=== PATIENT | female | born 1990 | race Caucasian/White ===

== ENCOUNTER → 2019-06-23 11:31 | Outpatient (BNVA) | payer MEDICAID, SELFPAY | PROVIDERS: Family Provider Family Medicine; PCP Family Medicine; Visit Provider Emergency Medicine | DX: R10.9 Unspecified abdominal pain (principal) | CPT/HCPCS: 81003 ==

== ENCOUNTER → 2019-06-26 09:55 | Outpatient (BNVA) | payer MEDICAID, SELFPAY | PROVIDERS: Family Provider Family Medicine; PCP Family Medicine; Visit Provider Family Medicine | DX: R10.9 Unspecified abdominal pain (principal); E03.9 Hypothyroidism, unspecified; R00.2 Palpitations; K21.9 Gastro-esophageal reflux disease without esophagitis; K59.09 Other constipation; J45.20 Mild intermittent asthma, uncomplicated; K21.0 Gastro-esophageal reflux disease with esophagitis; Z13.6 Encounter for screening for cardiovascular disorders; Z13.220 Encounter for screening for lipoid disorders | CPT/HCPCS: 80053; 80061; 83690; 84443; 85025 ==

== ENCOUNTER → 2019-07-13 08:28 | Outpatient (BNVA) | payer MEDICAID, SELFPAY | PROVIDERS: Family Provider Family Medicine; PCP Family Medicine; Visit Provider Family Medicine | DX: R30.0 Dysuria (principal); Z20.2 Contact with and (suspected) exposure to infections with a predominantly sexual mode of transmission | CPT/HCPCS: 81003; 87491; 87591; 87661 ==

== ENCOUNTER 2019-09-15 10:10 | Outpatient (CLI) | payer MEDICAID, SELFPAY ==
--- NOTE | 2019-09-15 10:35 | FL_ITS ---
WS: [id number] Upper GI examination with fluoroscopy. HISTORY: Abdominal pain. Prior gastric sleeve. Fluoroscopy time: 1.8 minutes. Patient swallowed the barium mixtures without difficulty. Mildly dilated stomach pouch fills with bar ium and then empties normally through the gastric sleeve. There is no extravasation. Very similar in appearance to the CT examination from 06/29/2018. There is very slight delay in emptying from the dist al esophagus into the pouch. Tiny amount of reflux into the distal esophagus was evident as several t imes. There is good emptying through the gastric sleeve. FL/FL upper GI w air* [id number] IMPRESSION: Slight delay in emptying of the distal esophagus and a few episodes of minimal reflux distally. Otherwise the gastric sleeve is very similar in appearance as compared to 2018.
== END 2019-09-15 10:11 | disposition home or self-care (01) ==
LOC: RAD 10:14
PROVIDERS: PCP Family Medicine; Visit Provider Surgery
DX: R10.9 Unspecified abdominal pain (principal)
CPT/HCPCS: 74246

== ENCOUNTER 2019-09-19 06:25 | Day surgery (SDC) | payer MEDICAID, SELFPAY ==
[2019-09-18 15:50] VITALS: BMI 42.9
[2019-09-19] VITALS (7 sets, daily range): BP systolic 111–129; BP diastolic 66–83; PULSE 71–84; RESP 18–24; TEMP 36.1–36.2; O2SAT 93–100
--- NOTE | 2019-09-19 06:55 | P.ANESASSM_ITS ---
Pre-Anesthetic Assessment Pre-Anesthetic Assessment: Height/Weight: Height 1.63 m Weight 113.398 kg Temp Pulse Resp BP Pulse Ox 97.0 F L 71 18 115/77 99 09/19/19 06:39 09/19/19 06:39 09/19/19 06:39 09/19/19 06:39 09/19/19 06:39 Preop Diagnosis: Right upper Extremity masses and GERD Proposed Procedure: Operation Date: 09/19/19 08:00 Proposed Procedures p EGD 97611 [id number] k21.9 k21.0(Not Applicable) - Saran Green MD s Excision of skin lesion for right uppper extrimty masses(Right) - Saran Green MD Familial anesthetic complications: Woke up during her last removal of lipomas under propofol - will do ett Was Beta Carolyn taken within 24 hours: N/A L ast intake: Intake Last Liquid Date 09/18/19 Last Liquid Time 20:00 Last Solid Date 09/18/19 Last Solid Time 20:00 Social: Social History: Tobacco and No alcohol Exam: Pre-Anes Outpt Exam: alert, oriented x 3, clear to auscultation bilaterally and regular rate & rhythm Airway: Cervical ROM: WNL MP: 2 Additional comments: EDENTULOUS Pulmonary: Pulmonary: Asthma CV/HEM: CV/HEM: Palp : : None reported Hepatic: Hepatic: None reported GI: GI: GERD Comments: hx gastric sleeve Metabolic: Metabolic: Morbid obesity Neuropsych: Neuropsych: None reported Anesthetic Plan: ASA status: 2 Anesthesia: General Risk of > 500 ml blood loss (7ml/kg in children): No PFSH Anesthesia PFSH: Medical History Abdominal pain determined by examination Asthma, mild intermittent, well-controlled Chronic constipation Constipation GERD (gastroesophageal reflux disease) Lipomatosis Lumbar pain Obesity Panic disorder Surgical History History of dilation and curettage History of hysterectomy History of laparoscopic cholecystectomy History of oral surgery (~2014) History of Shanae-en-Y gastric bypass (~10/2015) History of sleeve gastrectomy History of tonsillectomy and adenoidectomy Family History Mother Hypertension Diabetes Thyroid disease Father Hypertension Father Heart disease Family/Other Heart disease Denies family history of Anesthesia complication Bleeding disorder Social History Smoking and tobacco status: current every day smoker cigarettes Quit status (tobacco): not considering quitting Second hand smoke exposure: Yes Alcohol intake: never Desire information about alcohol rehabilitation?: No Desire information about substance/drug rehabilitation?: No Adopted: No Caregiver/support person: Yes Lives independently: No Household members: family Housing: House Marital status: Highest education level completed: High School Graduate service: No Current occupational status: unemployed Current occupational exposures/hazards: No Pets and animals: Yes History of recent travel: No Sexually active: Yes Current gender identity: Female Katie/Denominational: None Special katie needs: No Agree to transfusion: No Financial difficulty paying for basics: Decline to Answer Data Anesthesia Cardiac Studies: No Data to Display
[2019-09-19] MEDS: sodium chloride 0.9% 1,000 ML 30 ML IV (06:56)
--- NOTE | 2019-09-19 08:05 | W.PM.OPSUD ---
Surgery/Procedure H&P Update DATE OF PROCEDURE: September 19, 2019 DATE H&P PERFORMED: 09/11/19 H&P UPDATE INFORMATION: I have reviewed H&P completed within last 30 days, I have examined patient prior to procedure and No changes to prior documentation PREOP DIAGNOSIS: Right upper Extremity masses and GERD PRIMARY INDICATION FOR PROCEDURE: The same PLANNED PROCEDURE: Operation Date: 09/19/19 08:00 Proposed Procedures p EGD [id number] k21.9 k21.0(Not Applicable) - Saran Green MD s Excision of skin lesion for right uppper extrimty masses(Right) - Saran Green MD
[2019-09-19] MEDS: clindamycin 900 MG/50 ML PREMIX 100 MG IV (08:28)
[2019-09-19] MEDS: lidocaine 2% INJ 20 mL INJECTION (09:00)
--- NOTE | 2019-09-19 09:35 | PM.OP ---
Operative Report Date of procedure: September 19, 2019 Pre-op Diagnosis: Right upper Extremity masses and GERD status post gastric sleeve Post-op diagnosis: other (Multiple life pneumatosis of the right upper extremity,EGD shows prepyloric gastritis and spiraling of the GE junction GERD appreciated at the GE junction which is located 40 cm from the incisors No evidence of strictures) Procedure Done: Excision of multiple right upper extremity masses and EGD(esophagogastroduodenoscopy with biopsy) Specimens removed/disposition: Right upper extremity masses: 1-right arm mass 2-right forearm proximal mass 3-right forearm dorsal mass 4-right forearm posterior mass Surgeon: Saran Green Graphic Engineer: Jaxson instructor adjunct surgical technician Lyndsey ceramics technician Aline circulating nurse Anesthesia: General (cRNAs Macho and Jadon) Estimated blood loss (mL): 5 Condition: stable Disposition: same day Brief History: This is a pleasant 29 years old female patient well-known to me from previous clinical encounters, continues to have development of newly encountered lipomatosis of the extremities, she was seen recently in my office because of tender spots on her right upper extremity,in addition she is a status post laparoscopic gastric sleeve that was done elsewhere few years ago and developed worsening GERD where I elected to perform a diagnostic upper GI study prior to offer her an EGD. After thorough history physical examination and reviewing the chart and images with my personal interpretation I did breastfeeding peer counselor the patient for excision of right upper extremity masses and diagnostic EGD with possible biopsy. Informed consent per chart Procedure: After identifying the patient holding area, the right upper extremity masses were marked before the procedure by myself, patient was then transferred to the operative suite, was placed in supine position, IV antibiotics were given per protocol, IV propofol was given by the anesthesia provider followed by intubation, the patient was placed in supine position and all pressure points were padded by me and the staff, prep and drape of the right upper extremity circumferentially was done under the usual sterile technique. Time-out was done verifying the patient's name/date of /planned procedure and destination after the procedure, all were in agreement. I started by oblique skin incision all the way to the subcutaneous layer using 15 blade knife of the mass located at the lateral aspect of the right arm, dissecting all the way to the subcutaneous layer measured 1 x 1.5 cm. Using the same technique the other mass located proximally at the right forearm, skin incision was created and dissection was carried all the way to the subcutaneous layer is about 1 x 1 cm. Same technique was used for another mass located at the dorsal aspect of the right forearm which comprised the third specimen and the fourth was located on the posterior aspect of the right forearm that was excised with using the same thing. I was able to dissect using sharp and blunt dissection and excising a well encapsulated lipoma-like structure of all 4 places. All specimens were sent for permanent pathology separately All cavities were irrigated and hemostasis was achieved, followed by closure with 3-0 Vicryl then 4-0 Monocryl and then surgical glue. At this point attention was deviated towards the diagnostic EGD with the patient was placed in the left lateral position, I introduced the EGD via the mouth after a bite block was placed and I was able to reach all the way to the second part of the duodenum, GE junction was noticed to be at 40 cm with grade I GERD, noticed spiraling at the GE junction towards the proximal part of the gastric conduit but there was no obvious stricture, prepyloric gastritis were noticed and there was no evidence of hiatal hernias per endoscopic view and no strictures of the gastric conduit, remanent of the gastric fundus was appreciated. The first and second parts of the duodenum appeared to be normal CLOtest biopsy was obtained from the antrum to rule out H. pylori infection The scope was then retrieved after deflation of the conduit and patient tolerated this part of the procedure well Patient tolerated both procedures well, count of instruments,needles and sponges were completed at the end of the procedure.And then patient was transferred to the recovery area in stable condition after extubation. I was present for the whole entire procedure
--- NOTE | 2019-09-19 09:49 | SUR.PHASEI ---
PT TO PACU AWAKE REQUESTS TO SIT UP HOB AT 45 DEGREES, PT SLEEPY WITH GOOD RESP BUT AWAKES EASILY TO VOICE ANSWERS APPROPRIATELY TO VERBAL QUESTIONS, VSS.
[2019-09-21 14:05] LABS: H. Pylori / CLO Test Negative
== END 2019-09-19 10:46 | disposition home or self-care (01) ==
PROVIDERS: PCP Family Medicine; Visit Provider Surgery
PROC: 0DJ08ZZ Inspection of Upper Intestinal Tract, Via Natural or Artificial Opening Endoscopic (ICD-10-PCS; CPT 43235; principal; 2019-09-19 07:55)
PROC: (CPT 11404; 2019-09-19 07:55)
DX: L72.8 Other follicular cysts of the skin and subcutaneous tissue (principal); R22.31 Localized swelling, mass and lump, right upper limb; K21.9 Gastro-esophageal reflux disease without esophagitis; Z98.84 Bariatric surgery status; J45.909 Unspecified asthma, uncomplicated; E66.01 Morbid (severe) obesity due to excess calories; Z68.41 Body mass index [BMI] 40.0-44.9, adult; F17.210 Nicotine dependence, cigarettes, uncomplicated
CPT/HCPCS: 11404; 12032; 12345; 43239; 87077; 88304; J0330; J1100; J2001; J2250; J2405; J2704; J3010; J3490; J7030

== ENCOUNTER 2019-11-28 05:58 | Day surgery (SDC) | payer MEDICAID, SELFPAY ==
[2019-11-28] VITALS (7 sets, daily range): BP systolic 111–143; BP diastolic 74–93; PULSE 66–77; RESP 16–22; TEMP 36.2–36.7; O2SAT 94–100; BMI 48.0
--- NOTE | 2019-11-28 06:21 | W.PM.OPSUD ---
Surgery/Procedure H&P Update DATE OF PROCEDURE: November 28, 2019 DATE H&P PERFORMED: 11/15/19 H&P UPDATE INFORMATION: I have reviewed H&P completed within last 30 days, I have examined patient prior to procedure and No changes to prior documentation PREOP DIAGNOSIS: Lipomatosis of left upper extremity and mid back PRIMARY INDICATION FOR PROCEDURE: The same PLANNED PROCEDURE: Operation Date: 11/28/19 07:10 Proposed Procedures p Excision Mass/Lesion/Cyst Upper Extremit/Left arm and back masses 72763 K88.2(Left) - Saran Green MD
[2019-11-28] MEDS: sodium chloride 0.9% 1,000 ML 30 ML IV (06:30)
--- NOTE | 2019-11-28 06:43 | ANES.PREANE2 ---
Pre-Anesthetic Assessment Pre-Anesthetic Assessment: Height/Weight: Height 1.63 m Weight 127.006 kg Temp Pulse Resp BP Pulse Ox 97.2 F L 77 18 112/82 99 11/28/19 06:04 11/28/19 06:04 11/28/19 06:04 11/28/19 06:04 11/28/19 06:04 Preop Diagnosis: Lipomatosis of left upper extremity and mid back Proposed Procedure: Operation Date: 11/28/19 07:10 Proposed Procedures p Excision Mass/Lesion/Cyst Upper Extremit/Left arm and back masses 87481 K88.2(Left) - Saran Green MD Familial anesthetic complications: wakes up during propofol Was Beta Carolyn taken within 24 hours: Yes Last intake: Intake Last Liquid Date 11/27/19 Last Liquid Time 20:00 Last Solid Date 11/27/19 Last Solid Time 18:00 Social: Social History: Tobacco and No alcohol Exam: Pre-Anes Outpt Exam: alert, oriented x 3, clear to auscultation bilaterally and regular rate & rhythm Airway: Cervical ROM: WNL MP: 4 Dentition: Other (edentulous) Pulmonary: Pulmonary: Asthma (childhood) CV/HEM: Comments: palpitations GI: GI: GERD Metabolic: Metabolic: Morbid obesity Comments: gastric sleeve Anesthetic Plan: ASA status: 2 Anesthesia: General Risk of > 500 ml blood loss (7ml/kg in children): No Meds/Allergies Current Medications: Current Medications Generic Name Dose Route Start Last Admin Trade Name Freq PRN Reason Stop Dose Admin Sodium Chloride 1,000 mls @ 30 ml s/hr 11/28/19 06:00 11/28/19 06:30 Sodium Chloride 0.9% IV 11/29/19 05:59 30 mls/hr .Q24H LAURA Administration PFSH Anesthesia PFSH: Medical History Abdominal pain determined by examination Asthma, mild intermittent, well-controlled Chronic constipation Constipation GERD (gastroesophageal reflux disease) Lipomatosis Lumbar pain Obesity Panic disorder Surgical History History of dilation and curettage History of hysterectomy History of laparoscopic cholecystectomy History of oral surgery (~2014) History of Shanae-en-Y gastric bypass (~10/2015) History of sleeve gastrectomy History of tonsillectomy and adenoidectomy Family History Mother Hypertension Diabetes Thyroid disease Father Hypertension Father Heart disease Family/Other Heart disease Denies family history of Anesthesia complication Bleeding disorder Social History Smoking and tobacco status: current every day smoker cigarettes Quit status (tobacco): not considering quitting Second hand smoke exposure: Yes Alcohol intake: never Desire information about alcohol rehabilitation?: No Desire information about substance/drug rehabilitation?: No Adopted: No Caregiver/support person: Yes Lives independently: No Household members: family Housing: House Marital status: Highest education level completed: High School Graduate service: No Current occupational status: unemployed Current occupational exposures/hazards: No Pets and animals: Yes History of recent travel: No Sexually active: Yes Current gender identity: Female Katie/Anabaptism: None Special katie needs: No Agree to transfusion: No Financial difficulty paying for basics: Decline to Answer Data Anesthesia Cardiac Studies: No Data to Display
[2019-11-28] MEDS: clindamycin 900 MG/50 ML PREMIX 100 MG IV (07:00)
[2019-11-28] MEDS: lidocaine 2% INJ 20 mL INJECTION (07:35)
--- NOTE | 2019-11-28 07:55 | PM.OP ---
Operative Report Date of procedure: November 28, 2019 Pre-op Diagnosis: Lipomatosis of left upper extremity and mid back Post-op diagnosis: same Procedure Done: Excision of left arm and back masses Specimens removed/disposition: Left arm masses Back mass Surgeon: Saran Green Operations Support Representative: Surgical kimberlyn Aguila Anesthesia: General (fast food sales assistant Smart) Estimated blood loss (mL): 10 Condition: stable Disposition: same day Brief History: This is a pleasant 29 years old female patient morbidly obese well-known to me, with history of multiple lipomatosis, patient was seen in my office lately for new onset masses of the left arm and back patient was counseled for excision of these masses under general anesthesia. Informed consent per chart Procedure: After identifying the patient holding area, the left upper extremity and back masses were marked before the procedure by myself, patient was then transferred to the operative suite, was placed in supine position, IV antibiotics were given per protocol, IV propofol was given by the anesthesia provider followed by intubation, the patient was placed in right lateral position and all pressure points were padded by me and the staff and patient was secured appropriately to the bed, prep and drape of the left upper extremity and back regions were done under the usual sterile technique. Time-out was done verifying the patient's name/date of /planned procedure and destination after the procedure, all were in agreement. I started by skin incision all the way to the subcutaneous layer using 15 blade knife of the mass located at the back region , dissecting all the way to the subcutaneous layer measured 1.5 x 1.5 cm. Using the same technique the other mass located proximally at left arm, multiple skin incisions were created on siding with the left arm 3 masses and dissection was carried all the way to the subcutaneous layer and average of 1.5 x 1.5 cm. I was able to dissect using sharp and blunt dissection and excising a well encapsulated lipoma-like structure of all 4 places. All specimens were sent for permanent pathology separately All cavities were irrigated and hemostasis was achieved, followed by closure with 3-0 Vicryl then 4-0 Monocryl and then asked to swollen Steri-Strips followed by pressure dressing. Count was completed at the end of the procedure Patient tolerated the procedure well,And then patient was transferred to the recovery area in stable condition after extubation. I was present for the whole entire procedure
--- NOTE | 2019-11-28 08:17 | SUR.PHASEI ---
0813 PATIENT TO PACU FROM OR. RR EVEN AND UNLABORED. SPO2 100% ON SIMPLE MASK AT 8L. DRESSING TO LEFT UPPER ARM, CDI.
--- NOTE | 2019-11-28 08:38 | SUR.PHASEI ---
0832 PATIENT TO OPS AT THIS TIME. NO DISTRESS. DRESSINGS TO LEFT ARM AND LEFT LOWER BACK, CDI.
[2019-11-28] MEDS: TRAMadol 50 mg Tablet PO (08:54)
== END 2019-11-28 09:12 | disposition home or self-care (01) ==
PROVIDERS: PCP Family Medicine; Visit Provider Surgery
PROC: (CPT 11402; principal; 2019-11-28 07:00)
DX: D17.1 Benign lipomatous neoplasm of skin and subcutaneous tissue of trunk (principal); D17.22 Benign lipomatous neoplasm of skin and subcutaneous tissue of left arm; J45.909 Unspecified asthma, uncomplicated; K21.9 Gastro-esophageal reflux disease without esophagitis; E66.01 Morbid (severe) obesity due to excess calories; Z68.42 Body mass index [BMI] 45.0-49.9, adult; Z98.84 Bariatric surgery status; F17.210 Nicotine dependence, cigarettes, uncomplicated; Z83.3 Family history of diabetes mellitus; Z82.49 Family history of ischemic heart disease and other diseases of the circulatory system; Z79.01 Long term (current) use of anticoagulants
CPT/HCPCS: 11402 ×2; 12031; 12345; 88309; J0330; J2405; J2704; J3010; J3490; J7030

== ENCOUNTER → 2019-12-13 12:52 | Outpatient (BNVA) | payer MEDICAID, SELFPAY | PROVIDERS: PCP Family Medicine; Visit Provider Psychiatry & Neurology Psychiatry | DX: F41.0 Panic disorder [episodic paroxysmal anxiety] (principal); F33.1 Major depressive disorder, recurrent, moderate | CPT/HCPCS: 90792 ==

== ENCOUNTER → 2020-01-04 16:12 | Outpatient (BNVA) | payer MEDICAID, SELFPAY | PROVIDERS: PCP Family Medicine; Visit Provider Counselor Professional | DX: F41.0 Panic disorder [episodic paroxysmal anxiety] (principal); F41.1 Generalized anxiety disorder; F33.1 Major depressive disorder, recurrent, moderate | CPT/HCPCS: 90832 ==

== ENCOUNTER → 2020-01-10 10:58 | Outpatient (BNVA) | payer MEDICAID, SELFPAY | PROVIDERS: PCP Family Medicine; Visit Provider Psychiatry & Neurology Psychiatry | DX: F41.0 Panic disorder [episodic paroxysmal anxiety] (principal); F33.1 Major depressive disorder, recurrent, moderate | CPT/HCPCS: 99213 ==

== ENCOUNTER → 2020-01-22 13:08 | Outpatient (BNVA) | payer MEDICAID, SELFPAY | PROVIDERS: PCP Family Medicine; Visit Provider Psychiatry & Neurology Psychiatry | DX: F43.10 Post-traumatic stress disorder, unspecified (principal); F41.0 Panic disorder [episodic paroxysmal anxiety]; F81.9 Developmental disorder of scholastic skills, unspecified; F32.9 Major depressive disorder, single episode, unspecified | CPT/HCPCS: 99214 ==

== ENCOUNTER → 2020-02-22 15:02 | Outpatient (BNVA) | payer MEDICAID, SELFPAY | PROVIDERS: PCP Family Medicine; Visit Provider Counselor Professional | DX: F41.0 Panic disorder [episodic paroxysmal anxiety] (principal); F33.1 Major depressive disorder, recurrent, moderate; F41.1 Generalized anxiety disorder | CPT/HCPCS: 90832 ==

== ENCOUNTER → 2020-02-23 09:56 | Outpatient (BNVA) | payer MEDICAID, SELFPAY | PROVIDERS: PCP Family Medicine; Referring Provider Nurse Practitioner Family; Visit Provider Nurse Practitioner Family | DX: Z11.59 Encounter for screening for other viral diseases (principal); B34.9 Viral infection, unspecified | CPT/HCPCS: 87635 ==

== ENCOUNTER → 2020-03-21 09:07 | Outpatient (BNVA) | payer MEDICAID, SELFPAY | PROVIDERS: PCP Family Medicine; Referring Provider Surgery; Visit Provider Surgery | DX: Z20.828 Contact with and (suspected) exposure to other viral communicable diseases (principal) | CPT/HCPCS: 87635 ==

== ENCOUNTER 2020-03-26 09:53 | Day surgery (SDC) | payer MEDICAID, SELFPAY ==
[2020-03-25 13:21] VITALS: BMI 49.6
[2020-03-26 10:21] VITALS: BP 134/65; PULSE 69; RESP 18; TEMP 36.1; O2SAT 97
[2020-03-26] MEDS: sodium chloride 0.9% 1,000 ML 30 ML IV (10:38)
--- NOTE | 2020-03-26 10:51 | P.ANESASSM_ITS ---
Pre-Anesthetic Assessment Pre-Anesthetic Assessment: Height/Weight: Height 1.6 m Weight 127.006 kg Temp Pulse Resp BP Pulse Ox 97.0 F L 69 18 134/65 97 03/26/20 10:21 03/26/20 10:21 03/26/20 10:21 03/26/20 10:21 03/26/20 10:21 Preop Diagnosis: Lipomatosis of left upper extremity and mid back Proposed Procedure: Operation Date: 03/26/20 11:35 Proposed Procedures p EXCISION OF LEFT UPPER AND BILATERAL LOWER EXTREMITIES MASSES 24750 E88.2(Not Applicable) - Saran Green MD Familial anesthetic complications: None Was Beta Carolyn taken within 24 hours: N/A Last intake: Intake Last Liquid Date 03/26/20 Last Liquid Time 07:00 Last Solid Date 03/25/20 Last Solid Time 19:00 Social: Social History: Tobacco and No alcohol Exam: Pre-Anes Outpt Exam: alert, oriented x 3, clear to auscultation bilaterally and regular rate & rhythm Airway: Cervical ROM: WNL MP: 4 Dentition: Other (no teeth) Pulmonary: Pulmonary: Asthma CV/HEM: CV/HEM: Palp Metabolic: Metabolic: Morbid obesity Anesthetic Plan: ASA status: 3 Anesthesia: General Risk of > 500 ml blood loss (7ml/kg in children): No Meds/Allergies Current Medications: Current Medications Generic Name Dose Route Start Last Admin Trade Name Freq PRN Reason Stop Dose Admin Sodium Chloride 1,000 mls @ 30 ml s/hr 03/26/20 10:15 03/26/20 10:38 Sodium Chloride 0.9% IV 03/27/20 10:14 30 mls/hr .Q24H LAURA Administration PFSH Anesthesia PFSH: Medical History Abdominal pain determined by examination Asthma, mild intermittent, well-controlled Chronic constipation Constipation GERD (gastroesophageal reflux disease) Intellectual delay Lipomatosis Lumbar pain MDD (major depressive disorder) Obesity Panic Panic disorder PTSD (post-traumatic stress disorder) Surgical History History of dilation and curettage History of hysterectomy History of laparoscopic cholecystectomy History of oral surgery (~2014) History of Shanae-en-Y gastric bypass (~10/2015) History of sleeve gastrectomy History of tonsillectomy and adenoidectomy Family History Mother Hypertension Diabetes Thyroid disease Father Hypertension Father Heart disease Family/Other Heart disease Denies family history of Anesthesia complication Bleeding disorder Social History Smoking and tobacco status: current every day smoker cigarettes Quit status (tobacco): not considering quitting Second hand smoke exposure: Yes Alcohol intake: never Desire information about alcohol rehabilitation?: No Desire information about substance/drug rehabilitation?: No Adopted: No Caregiver/support person: Yes Lives independently: No Household members: family Housing: House Marital status: Highest education level completed: High School Graduate service: No Current occupational status: unemployed Current occupational exposures/hazards: No Pets and animals: Yes History of recent travel: No Sexually active: Yes Current gender identity: Female Katie/Scientologist: None Special katie needs: No Agree to transfusion: No Financial difficulty paying for basics: Decline to Answer Female Reproductive History: Spontaneous abortions: No Data Anesthesia Cardiac Studies: No Data to Display
--- NOTE | 2020-03-26 11:47 | W.PM.OPSUD ---
Surgery/Procedure H&P Update DATE OF PROCEDURE: March 26, 2020 DATE H&P PERFORMED: 03/11/20 H&P UPDATE INFORMATION: I have reviewed H&P completed within last 30 days, I have examined patient prior to procedure and No changes to prior documentation PREOP DIAGNOSIS: Lipomatosis of left upper extremity and mid back PRIMARY INDICATION FOR PROCEDURE: The same PLANNED PROCEDURE: Operation Date: 03/26/20 11:35 Proposed Procedures p EXCISION OF LEFT UPPER AND BILATERAL LOWER EXTREMITIES MASSES 27635 E88.2(Not Applicable) - Saran Green MD
[2020-03-26] MEDS: lidocaine 2% INJ 20 mL INJECTION (12:25)
[2020-03-26] MEDS: clindamycin 900 MG/50 ML PREMIX 100 MG IV (12:25)
--- NOTE | 2020-03-26 12:55 | PM.OP ---
Operative Report Date of procedure: March 26, 2020 Pre-op Diagnosis: Lipomatosis of the left upper and bilateral lower extremities Post-op diagnosis: same Post-op Findings: Lipomatosis of the left upper and bilateral lower extremities Procedure Done: Excision of multiple lipomatosis of left upper and bilateral lower extremities Specimens removed/disposition: multiple lipomatosis of left upper and bilateral lower extremities Surgeon: Saran Green Grades 6 Through 8 Teacher: instrument and electrical technician Ailyn Circulating nurse Aline Anesthesia: General (LMA cotton breeder Lanny) Estimated blood loss (mL): 5 Condition: stable Disposition: same day Brief History: This is a pleasant 29 years old female patient presenting with symptomatic lipomatosis, patient had previous removal of similar painful lipomas of her upper extremities, yet recently developed more on the left upper and bilateral lower extremities and she visited with me at the office for potential surgical excision. After history taking physical examination and reviewing the chart I did pre parole counseling aide the patient to excise those symptomatic lipomatosis and informed consent per chart. Procedure: After identifying the patient holding area, the left upper extremity and bilateral lower extremity masses were marked before the procedure by myself in the presence of female paediatrician Mignon LINARES, patient was then transferred to the operative suite, was placed in supine position, IV antibiotics were given per protocol, IV propofol was given by the anesthesia provider followed by LMA insertion, the patient was placed in supine position and all pressure points were padded by me and the staff and patient was secured appropriately to the bed, prep and drape of the left upper extremity and bilateral thigh regions were done under the usual sterile technique. Time-out was done verifying the patient's name/date of /planned procedure and destination after the procedure, all were in agreement. I started by skin incision all the way to the subcutaneous layer using 15 blade knife of the mass located at the left upper extremity region,dissecting all the way to the subcutaneous layer measured 1.5 x 1.5 cm. Using the same technique the other mass located laterally and medial at the left thigh,multiple skin incisions were created coinciding with both locations.Masses were dissected as dissection was carried all the way to the subcutaneous layer and average of 1.5 x 1.5 cm. Attention was deviated towards the right thigh with the same technique was used and another lipoma was excised. Noted that the thigh lipomas are deeper in comparison to the left upper extremity which required more dissection. I was able to dissect using sharp and blunt dissection and excising a well encapsulated lipoma-like structure of all 4 places. All specimens were sent for permanent pathology separately All cavities were irrigated and hemostasis was achieved, followed by closure with 3-0 Vicryl then 4-0 Monocryl and then asked to swollen Steri-Strips followed by pressure dressing. Count was completed at the end of the procedure Patient tolerated the procedure well,And then patient was transferred to the recovery area in stable condition after extubation. I was present for the whole entire procedure
[2020-03-26 13:16] VITALS: BP 104/62; PULSE 82; RESP 19; TEMP 37; O2SAT 91
[2020-03-26 13:21] VITALS: BP 107/68; PULSE 80; RESP 26; O2SAT 92
[2020-03-26 13:24] VITALS: BP 110/61; PULSE 80; RESP 18; TEMP 36.6; O2SAT 93
[2020-03-26 13:30] VITALS: BP 117/73; PULSE 81; RESP 18; TEMP 36.6; O2SAT 92
[2020-03-26 13:48] LABS: Glucose Point of Care 89 mg/dL (70-110)
[2020-03-26] MEDS: TRAMadol 50 mg Tablet PO (13:49)
[2020-03-26 13:55] VITALS: BP 109/79; PULSE 79; RESP 18; O2SAT 93
--- NOTE | 2020-03-26 17:36 | ANE.PACU2 ---
Inpatient post-anesthesia follow up: Airway intact: Yes Vital signs: Temperature 97.9 F Pulse Rate 79 Respiratory Rate 18 Blood Pressure 109/79 Pulse Oximetry 93 Oxygen Delivery Me thod Room Air Oxygen Flow Rate Fraction of Inspir ed Oxygen Hydration adequate: Yes Nausea and vomiting: No Pain level: 2 Mental status: Baseline
== END 2020-03-26 14:12 | disposition home or self-care (01) ==
PROVIDERS: PCP Family Medicine; Visit Provider Surgery
PROC: (CPT 11401; principal; 2020-03-26 11:35)
DX: E88.2 Lipomatosis, not elsewhere classified (principal); J45.909 Unspecified asthma, uncomplicated; E66.01 Morbid (severe) obesity due to excess calories; Z68.42 Body mass index [BMI] 45.0-49.9, adult; F17.210 Nicotine dependence, cigarettes, uncomplicated
CPT/HCPCS: 11401; 11402; 11403; 12032; 12345; 36416; 82962; 88304; 96365; J0131; J2250; J2405; J2704; J3010; J3490; J7030

== ENCOUNTER → 2020-04-01 08:13 | Outpatient (BNVA) | payer MEDICAID, SELFPAY | PROVIDERS: PCP Family Medicine; Visit Provider Counselor Mental Health | DX: F41.0 Panic disorder [episodic paroxysmal anxiety] (principal); F33.1 Major depressive disorder, recurrent, moderate | CPT/HCPCS: 90834 ==

== ENCOUNTER → 2020-04-08 08:12 | Outpatient (BNVA) | payer MEDICAID, SELFPAY | PROVIDERS: PCP Family Medicine; Visit Provider Counselor Mental Health | DX: F41.0 Panic disorder [episodic paroxysmal anxiety] (principal); F33.1 Major depressive disorder, recurrent, moderate; F41.1 Generalized anxiety disorder | CPT/HCPCS: 90832 ==

== ENCOUNTER → 2020-04-30 11:19 | Outpatient (BNVA) | payer MEDICAID, SELFPAY | PROVIDERS: PCP Family Medicine; Visit Provider Nurse Practitioner Family | DX: Z20.828 Contact with and (suspected) exposure to other viral communicable diseases (principal) | CPT/HCPCS: 87635 ==

== ENCOUNTER 2020-05-01 10:47 | Emergency (ER) | payer MEDICAID, SELFPAY ==
[2020-05-01 10:53] VITALS: BP 128/88; PULSE 79; RESP 16; TEMP 36.3; O2SAT 97; BMI 51.5
--- NOTE | 2020-05-01 11:12 | ED_ITS ---
HPI - Psych General: Chief Complaint: Psychiatric Symptoms Stated Complaint: anxiety/wants to be Time Seen by Provider: 05/01/20 10:47 Source: patient Mode of arrival: ambulatory Limitations: no limitations History of Present Illness: HPI Narrative: 29-year-old female patient presents to the emergency department with uncontrolled anxiety. She reports anxiety since age 13, currently receives care through behavioral health, receives medication and counseling. Next follow-up is scheduled for May 06 with [facility]. She reports her psychiatrist is out of town, has experienced recent loss of her best friend's mom on . States had to identify the body which was traumatic for her. She reports decreased sleep, psychiatric medications or not helping with anxiety. She is requesting something to help with her anxiety symptoms. States none of her medications are helping, does not want admission to the stress unit - wants medication for anxiety and to go home. is out of Klonopin. She was sent to the emergency room as her psychiatric provider is out of town. She has history of 96-hour hold in her 20s. No previous suicide attempt. Remains on Klonopin on an as-needed basis, is currently out of that medication. She is tearful upon exam. Call to move cars regarding her visit here, ELIAN reports Terri called on Wednesday for an appointment but none was available since her provider is out of town. complaint: feels depressed and other (uncontrolled anxiety) Onset (ago): day(s) (2-3) Duration: constant and getting worse History of same: Yes Relieving factors: none Exacerbating factors: other (recent of friend) Context: significant life stressor Associated psychiatric symptoms: depression and other (uncontrolled anxiety) Associated symptoms: Reports depression and racing thoughts; Deny auditory hallucinations, visual hallucinations, homicidal ideation or suicidal ideation Treatments prior to arrival: other (advised by behavioral health to come to the ED) Review of Systems General: Reports: 10 or more systems reviewed and unremarkable except in HPI and below Const: Denies: fever(s), chills, body aches or diaphoresis Eyes: Denies: blurry vision or eye redness ENMT: Denies: throat pain, dental pain or disequilibrium Card: Denies: chest pain, palpitations or irregular heart rhythm Resp: Denies: dyspnea, productive cough, non-productive cough or wheezing GI: Denies: abdominal pain, nausea or vomiting : Denies: difficulty voiding or dysuria Musc: Denies: neck pain, back pain or joint pain Skin/Breast: Denies: rash or pruritus Neuro: Denies: headache(s), weakness in extremities or behavioral changes Psych: Reports: anxiety, depression, sleeping less and difficulty concentra ting; Denies: change in appetite, visual hallucinations, auditory hallucinations, tactile hallucinations, suicidal ideation or homicidal ideation Mata/Lymph: Denies: easy bruising PFSH ED PFSH: Medical History Abdominal pain determined by examination Asthma, mild intermittent, well-controlled Chronic constipation Constipation GERD (gastroesophageal reflux disease) Intellectual delay Lipomatosis Lumbar pain MDD (major depressive disorder) Obesity Panic Panic disorder PTSD (post-traumatic stress disorder) Surgical History History of dilation and curettage History of hysterectomy History of laparoscopic cholecystectomy History of oral surgery (~2014) History of Shanae-en-Y gastric bypass (~10/2015) History of sleeve gastrectomy History of tonsillectomy and adenoidectomy Family History Mother Hypertension Diabetes Thyroid disease Father Hypertension Father Heart disease Family/Other Heart disease Denies family history of Anesthesia complication Bleeding disorder Social History Smoking and tobacco status: current every day smoker cigarettes Quit status (tobacco): not considering quitting Second hand smoke exposure: Yes Alcohol intake: never Desire information about alcohol rehabilitation?: No Desire information about substance/drug rehabilitation?: No Adopted: No Caregiver/support person: Yes Lives independently: No Household members: family Housing: House Marital status: Highest education level completed: High School Graduate service: No Current occupational status: unemployed Current occupational exposures/hazards: No Pets and animals: Yes History of recent travel: No Sexually active: Yes Current gender identity: Female Katie/Presybeterian: None Special katie needs: No Agree to transfusion: No Financial difficulty paying for basics: Decline to Answer Female Reproductive History: Spontaneous abortions: No Physical Exam Const: COMMON NORMALS: no acute distress, patient oriented x3, healthy appearing, alert and well nourished GENERAL APPEARANCE: cooperative, comfortable, well kempt, well developed and well hydrated NUTRITIONAL APPEARANCE: obese ORIENTATION/CONSCIOUSNESS: Yes awake, Yes oriented to person, Yes oriented to place and Yes oriented to time HENMT: COMMON NORMALS: normocephalic, Normal external nose present and moist oral mucous membranes HEAD & SCALP: normocephalic NOSE: Normal external nose present Eye: COMMON NORMALS: Equal, round and reactive pupils present and EOMs intact bilaterally GENERAL EYE: appearance normal, both eyes and all related structures PUPIL: Yes Equal, round and reactive pupils present Neck/C-Spine: COMMON NORMALS: full ROM, no lymphadenopathy and supple GENERAL: Yes normal visual inspection and Yes trachea midline CERVICAL SPINE: Yes cervical ROM normal Lymph: LYMPHATIC: no lymphadenopathy noted Chest: COMMONS NORMALS: normal inspection of the chest and normal palpation of entire chest wall Resp: COMMON NORMALS: normal respiratory effort, No retractions, No use of accessory muscles and clear to auscultation bilaterally EFFORT & INSPECTION: Yes able to speak in complete sentences AUSCULTATION: clear to auscultation bilaterally Cardio: COMMON NORMALS: regular rhythm, S1 normal heart sound present, S2 normal heart sound present and Peripheral pulses 2+ throughout RHYTHM: regular rhythm HEART SOUNDS: S1 normal heart sound present and S2 normal heart sound present PERIPHERAL PULSES: Peripheral pulses 2+ throughout GI: COMMON NORMALS: Soft to palpation and non-tender INSPECTION: Yes normal to inspection PALPATION: Yes Soft to palpation : COMMON NORMALS: Yes no CVA tenderness BLADDER/KIDNEY EXAM: Yes no CVA tenderness Back/Pelvis: COMMON NORMALS: no CVA tenderness and thoracic and lumbar spine normal to inspection Extremity: COMMON NORMALS: normal to inspection and capillary refill normal Neuro: COMMON NORMALS: patient oriented x3 and no focal motor deficits SENSORIUM/ORIENTATION: Yes alert, Yes oriented to person, Yes oriented to place and Yes oriented to time Psych: COMMON NORMALS: mental status grossly normal, Normal thought process present, cooperative, normal affect, speech normal, activity/motor behavior normal, denies hallucinations, denies homicidal ideation and denies suicidal ideation APPEARANCE: Yes grossly normal and Yes well kempt ATTITUDE: Yes calm ACTIVITY/MOTOR BEHAVIOR: Yes appropriate eye contact SPEECH: Yes normal speech MOOD & AFFECT: Yes sad and Yes tearful THOUGHT PROCESS: Normal thought process present THOUGHT CONTENT: Yes Normal thought content present ATTENTION/CONCENTRATION: Yes attention grossly intact MEMORY/COGNITION: Yes memory grossly intact INSIGHT: Good insight present (Psych) JUDGEMENT: Good judgement present (Psych) Skin: COMMON NORMALS: no rashes or lesions noted and turgor normal GENERAL SKIN EXAM: no rashes or lesions noted and turgor normal Discharge Plan Discharge Patient Disposition: Home Clinical Impression: Acute anxiety Depression Qualifiers: Depression Type: reactive depression Qualified Code(s): F32.9 - Major depressive disorder, single episode, unspecified Condition: Stable Prescriptions: New lorazepam 1 mg tablet 1 mg PO DAILY PRN (Reason: anxiety) Qty: 10 RF: 0 No Action clonazepam 0.5 mg tablet 0.5 mg PO DAILY PRN (Reason: panic, anxiety) 30 Days Qty: 15 RF: 3 albuterol sulfate [ProAir HFA] 90 mcg/actuation HFA aerosol inhaler 2 puff INHALATION Q6H PRN (Reason: shortness of breath or wheezing) 30 Days Qty: 18 RF: 5 cyclobenzaprine 10 mg tablet 10 mg PO TID PRN (Reason: muscle spasm) 30 Days Qty: 60 RF: 5 Linzess 72 mcg capsule 72 mcg PO QAM 30 Days Qty: 30 RF: 5 pantoprazole [Protonix] 40 mg tablet,delayed release (DR/EC) 40 mg PO BID 30 Days Qty: 60 RF: 5 promethazine 25 mg tablet See Rx Instructions .ROUTE .COMPLEX 30 Days Qty: 60 RF: 5 pregabalin [Lyrica] 25 mg capsule 25 mg PO BID 7 Days Qty: 14 RF: 1 diclofenac sodium 1 % gel See Rx Instructions .ROUTE .COMPLEX Qty: 100 RF: 1 Hold Instructions: Resume on 03/30/20. buspirone 10 mg tablet 10 mg PO TID PRN (Reason: anxiety) 30 Days Qty: 90 RF: 3 quetiapine 100 mg tablet 100 mg PO .qhs 30 Days Qty: 30 RF: 3 Discharge Orders: Discharge ED (Routine); Ordered 05/01/20 Ordered By: Marlena Durbin Referrals: Julia Casillas MD [Primary Care Provider] - Discharge Diet: Usual diet Discharge Activity: Resume usual activity Patient Instructions: Depression (ED), Anxiety (ED) Activity Restrictions/Additional Instructions: Prescription for Ativan has been provided, keep medication out of reach of children and in your personal position at all times or locked up. Medication is addictive Continue follow-up with your psychiatric provider and counselor as scheduled on Monday, May 06, 2019. If you develop suicidal or homicidal ideation plans or thoughts, return to the emergency department immediately [facility] information has been provided, you may call the stress hotline for any needs 24 hours a day. Coding Level of Care Code ED E Commerce Retailer for Peter Fwnicole Exam Comprehensive
[2020-05-01] MEDS: LORazepam 1 mg Tablet PO (12:03)
== END 2020-05-01 12:07 | disposition home or self-care (01) ==
PROVIDERS: Emergency Provider Nurse Practitioner Family; PCP Family Medicine
DX: F41.9 Anxiety disorder, unspecified (principal); F32.9 Major depressive disorder, single episode, unspecified; F17.210 Nicotine dependence, cigarettes, uncomplicated
CPT/HCPCS: 12345; 99284

== ENCOUNTER → 2020-05-06 08:42 | Outpatient (BNVA) | payer MEDICAID, SELFPAY | PROVIDERS: PCP Family Medicine; Visit Provider Counselor Mental Health | DX: F41.0 Panic disorder [episodic paroxysmal anxiety] (principal); F33.1 Major depressive disorder, recurrent, moderate; F41.1 Generalized anxiety disorder | CPT/HCPCS: 90834 ==

== ENCOUNTER 2020-05-22 17:23 | Emergency (ER) | payer MEDICAID, SELFPAY ==
--- NOTE | 2020-05-22 18:20 | CTR_ITS ---
PROCEDURE INFORMATION: Exam: CT Head Without Contrast Exam date and time: 05/22/2020 6:23 PM Age: 29 years old Clinical indication: Pain; Headache; Additional info: MERCER TECHNIQUE: Imaging protocol: Computed tomography of the head without contrast. Total images: 187 Radiation optimization: All CT scans at this facility use at least one of these dose optimization techniques: automated exposure control; mA and/or kV adjustment per patient size (includes targeted exams where dose is matched to clinical indication); or iterative reconstruction. COMPARISON: CT head wo con* [id number] 07/12/2016 4:49 PM RADIATION DOSE METRICS: Total DLP (mGy-cm): 772.45 FINDINGS: Brain: No evidence of active or acute intracranial pathologic process, hemorrhage, or trauma. No visible cerebral edema. Unremarkable white matter. No mass effect. Wilfrido cisterna magna. Cerebral ventricles: No ventriculomegaly. Bones/joints: Unremarkable. No acute fracture. Paranasal sinuses: Visualized sinuses are unremarkable. No fluid levels. Mastoid air cells: Visualized mastoid air cells are well aerated. Soft tissues: Unremarkable. CT/CT head wo con* [id number] IMPRESSION: No acute intracranial abnormality. Radiation Dose CTDIVOL = (mGy): DLP = 772.45 (mGy-cm)
[2020-05-22 18:25] VITALS: BP 141/89; PULSE 79; RESP 16; O2SAT 96
--- NOTE | 2020-05-22 18:40 | ED_ITS ---
HPI - Headache General: Chief Complaint: Headache Stated Complaint: MIGRAINE X 4 WKS Time Seen by Provider: 05/22/20 18:16 Source: patient Mode of arrival: ambulatory Limitations: no limitations History of Present Illness: HPI Narrative: 29-year-old female who has had chronic headaches. Patient states she struck her head over 2 weeks ago and has had a headache since then. Patient was seen at [facility] had a normal MRI. Patient has seen multiple neurologist as well and has been referred to a neurologist in [place]. States she is also had some blurry vision in her right eye for days. Denies any new injuries. States her headache is a 6 out of 10 and worse with bright lights. MD elicited complaint: headache Associated symptoms: Deny chest pain, fever(s), nausea, rash or vomiting Review of Systems Const: Denies: fever(s), chills, body aches or change in appetite Eyes: Denies: blurry vision or eye discomfort ENMT: Denies: throat pain or dental pain Card: Denies: chest pain Resp: Denies: dyspnea GI: Denies: abdominal pain, nausea, vomiting or diarrhea : Denies: dysuria Musc: Denies: neck pain or back pain Skin/Breast: Denies: rash Neuro: Denies: headache(s) Psych: Denies: depression Mata/Lymph: Denies: easy bruising All/Imm: Denies: urticaria PFSH ED PFSH: Medical History Abdominal pain determined by examination Asthma, mild intermittent, well-controlled Chronic constipation Constipation GERD (gastroesophageal reflux disease) Intellectual delay Lipomatosis Lumbar pain MDD (major depressive disorder) Obesity Panic Panic disorder PTSD (post-traumatic stress disorder) Surgical History History of dilation and curettage History of hysterectomy History of laparoscopic cholecystectomy History of oral surgery (~2014) History of Shanae-en-Y gastric bypass (~10/2015) History of sleeve gastrectomy History of tonsillectomy and adenoidectomy Family History Mother Hypertension Diabetes Thyroid disease Father Hypertension Father Heart disease Family/Other Heart disease Denies family history of Anesthesia complication Bleeding disorder Social History Smoking and tobacco status: current every day smoker cigarettes Quit status (tobacco): not considering quitting Second hand smoke exposure: Yes Alcohol intake: never Desire information about alcohol rehabilitation?: No Desire information about substance/drug rehabilitation?: No Adopted: No Caregiver/support person: Yes Lives independently: No Household members: family Housing: House Marital status: Highest education level completed: High School Graduate service: No Current occupational status: unemployed Current occupational exposures/hazards: No Pets and animals: Yes History of recent travel: No Sexually active: Yes Current gender identity: Female Katie/Orthodox: None Special katie needs: No Agree to transfusion: No Financial difficulty paying for basics: Decline to Answer Female Reproductive History: Spontaneous abortions: No Physical Exam Const: COMMON NORMALS: no acute distress, patient oriented x3 and healthy appearing HENMT: COMMON NORMALS: normocephalic and atraumatic HEAD & SCALP: normocephalic and atraumatic Eye: COMMON NORMALS: Equal, round and reactive pupils present and EOMs intact bilaterally PUPIL: Yes Equal, round and reactive pupils present OTHER: Decreased vision in the right eye did respond to move my hand quickly to blinking her eye. Neck/C-Spine: COMMON NORMALS: full ROM and supple Chest: COMMONS NORMALS: normal inspection of the chest and normal palpation of entire chest wall Resp: COMMON NORMALS: normal respiratory effort, No retractions, No use of accessory muscles and clear to auscultation bilaterally AUSCULTATION: clear to auscultation bilaterally Cardio: COMMON NORMALS: regular rate, regular rhythm and No murmurs present (Cardio) RATE: regular rate RHYTHM: regular rhythm GI: COMMON NORMALS: Normal to inspection, nondistended, normoactive bowel sounds present, Soft to palpation, non-tender and no masses PALPATION: Yes Soft to palpation Extremity: COMMON NORMALS: normal to inspection and full ROM Neuro: COMMON NORMALS: patient oriented x3, moves all extremities and no focal motor deficits CRANIAL NERVES: Yes CN normal except as noted SPEECH: speech normal GAIT: Yes Normal gait present MOTOR EXAM: 5/5 motor strength present throughout Psych: COMMON NORMALS: mental status grossly normal, Normal thought process present and cooperative THOUGHT PROCESS: Normal thought process present Skin: COMMON NORMALS: no rashes or lesions noted and no wounds GENERAL SKIN EXAM: no rashes or lesions noted Course Vital Signs: Vital signs: Vital Signs Pulse Rate 79 05/22/20 18:25 Respiratory Rate 16 05/22/20 18:25 Blood Pressure 141/89 05/22/20 18:25 Pulse Oximetry 96 05/22/20 18:25 MDM - Headache MDM Narrative: Medical decision making narrative: Patient presents with headache that has been chronic in nature. She is to follow-up with her oncologist for her vision changes she has been having and to follow-up with her neurologist. She has had a negative MRI. Her head CT here is normal. She has no signs of acute stroke. Patient is stable for discharge is return if worsening. She understands agrees to plan. Lab Data: Labs: Lab Results 05/22/20 05/22/20 Range/Units 18:42 18:42 WBC 7.7 (4.0-10.0) 10^3/ uL RBC 4.16 (4.1-5.3) 10^6/u L Hgb 13.9 (11.5-15.3) g/dL Hct 40.8 (37.0-47.0) % MCV 98.1 (81-99) fL MCH 33.4 (28.0-34.0) pg MCHC 34.1 (30.0-36.0) g/dL RDW 12.2 (12.1-15.1) % Plt Count 251 (130-400) 10^3/c mm MPV 9.0 (7.4-10.4) fL Neut % (Auto) 59.1 % Lymph % (Auto) 28.4 % [place] % (Auto) 8.8 % Eos % (Auto) 1.6 % Baso % (Auto) 0.8 % Neut # (Auto) 4.56 (1.8-7.7) 10^3/u L Lymph # (Auto) 2.2 (0.8-4.8) 10^3/u L [place] # (Auto) 0.7 (0.2-0.9) 10^3/u L Eos # (Auto) 0.1 (0.0-0.8) 10^3/u L Baso # (Auto) 0.1 (0.0-0.1) 10^3/u L Nucleated RBC % (a uto) 0 % Nucleated RBCs # 0.0 /100WBC Sodium 137 (136-145) mmol/L Potassium 4.3 (3.5-5.1) mmol/L Chloride 102 (98-107) mmol/L Carbon Dioxide 25 (22-29) mmol/L Anion Gap 14.3 (5-19) BUN 13 (6-20) mg/dL Creatinine 0.6 (0.5-0.9) mg/dL GFR Calculation 117.4 (90-130) mL/min Glucose 102 (65-115) mg/dL Calculated Osmolal ity 284 L (285-295) mOsm/k g Calcium 9.5 (8.5-10.5) mg/dL Imaging Data^: CT Head: Radiologist's impression: [address] [address] [address] Scan Report Signed Patient: Terri Alfaro Unit #: [id number] : 1990 Age/Sex: 29 / F ADM Date: 05/22/20 Loc: ER Room/Bed: Attending Dr: Ordering Provider/Ordering MD: Adriano Saldivar MD Date of Service: 05/22/20 Procedure(s): CT head wo con* [id number] Accession Number(s): [id number] Report Number: [id number] PROCEDURE INFORMATION: Exam: CT Head Without Contrast Exam date and time: 05/22/2020 6:23 PM Age: 29 years old Clinical indication: Pain; Headache; Additional info: MERCER TECHNIQUE: Imaging protocol: Computed tomography of the head without contrast. Total images: 187 Radiation optimization: All CT scans at this facility use at least one of these dose optimization techniques: automated exposure control; mA and/or kV adjustment per patient size (includes targeted exams where dose is matched to clinical indication); or iterative reconstruction. COMPARISON: CT head wo con* [id number] 07/12/2016 4:49 PM RADIATION DOSE METRICS: Total DLP (mGy-cm): 772.45 FINDINGS: Brain: No evidence of active or acute intracranial pathologic process, hemorrhage, or trauma. No visible cerebral edema. Unremarkable white matter. No mass effect. Wilfrido cisterna magna. Cerebral ventricles: No ventriculomegaly. Bones/joints: Unremarkable. No acute fracture. Paranasal sinuses: Visualized sinuses are unremarkable. No fluid levels. Mastoid air cells: Visualized mastoid air cells are well aerated. Soft tissues: Unremarkable. CT/CT head wo con* [id number] IMPRESSION: No acute intracranial abnormality. Discharge Plan Discharge Patient Disposition: Home Clinical Impression: Headache Qualifiers: Headache type: unspecified Condition: Stable Prescriptions: No Action albuterol sulfate [ProAir HFA] 90 mcg/actuation HFA aerosol inhaler 2 puff INHALATION Q6H PRN (Reason: shortness of breath or wheezing) 30 Days Q ty: 18 RF: 5 cyclobenzaprine 10 mg tablet 10 mg PO TID PRN (Reason: muscle spasm) 30 Days Qty: 60 RF: 5 promethazine 25 mg tablet See Rx Instructions .ROUTE .COMPLEX 30 Days Qty: 60 RF: 5 buspirone 10 mg tablet 10 mg PO TID PRN (Reason: anxiety) 30 Days Qty: 90 RF: 3 fluoxetine 40 mg capsule 80 mg PO DAILY@0600 RF: 0 quetiapine 100 mg tablet 100 mg PO BEDTIME@1999 RF: 0 Protonix 40 mg tablet,delayed release (DR/EC) 40 mg PO BID@00,1999 RF: 0 Linzess 72 mcg capsule 72 mcg PO DAILY@0600 RF: 0 carisoprodol 350 mg tablet 350 mg PO Q8H PRN (Reason: muscle spasms lasting more than 30 minutes) RF: 0 sumatriptan succinate 100 mg tablet See Rx Instructions .ROUTE .COMPLEX RF: 0 metoprolol tartrate 50 mg tablet 50 mg PO BID@00,1999 RF: 0 Ventolin HFA 90 mcg/actuation HFA aerosol inhaler 2 puff INHALATION Q6H PRN (Reason: Shortness Of Breath) RF: 0 Discharge Orders: Discharge ED (Routine); Ordered 05/22/20 Ordered By: Adriano Saldivar Referrals: Julia Casillas MD [Primary Care Provider] - 1-3 days Discharge Diet: Advance as tolerated Discharge Activity: Resume usual activity Patient Instructions: Headache Coding Level of Care Code ED Dining Service Worker for Chg Fwd Exam Comprehensive
[2020-05-22] MEDS: sodium chloride 0.9% 1,000 ML 999 ML IV (18:50)
[2020-05-22] MEDS: metoclopramide 5 mg/mL SDV 2 mL 10 MG IVP (18:50)
[2020-05-22] MEDS: diphenhydrAMINE 50 mg/mL SDV 1mL IVP (18:50)
[2020-05-22 19:02] LABS: Basophils # 0.1 10^3/uL (0.0-0.1); Basophils % 0.8 %; Eosinophils # 0.1 10^3/uL (0.0-0.8); Eosinophils % 1.6 %; Hematocrit 40.8 % (37.0-47.0); Hemoglobin 13.9 g/dL (11.5-15.3); Lymphocytes # 2.2 10^3/uL (0.8-4.8); Lymphocytes % 28.4 %; Mean Corpuscular HGB Conc 34.1 g/dL (30.0-36.0); Mean Corpuscular Hemoglobin 33.4 pg (28.0-34.0); Mean Corpuscular Volume 98.1 fL (81-99); Monocytes # 0.7 10^3/uL (0.2-0.9); Monocytes % 8.8 %; Neutrophils # 4.56 10^3/uL (1.8-7.7); Neutrophils % 59.1 %; Nucleated Red Blood Cells % 0 %; Platelet Count 251 10^3/cmm (130-400); Red Blood Count 4.16 10^6/uL (4.1-5.3); Red Cell Distribution Width 12.2 % (12.1-15.1); White Blood Count 7.7 10^3/uL (4.0-10.0)
[2020-05-22 19:38] LABS: Anion Gap 14.3 (5-19); Blood Urea Nitrogen 13 mg/dL (6-20); Calcium 9.5 mg/dL (8.5-10.5); Carbon Dioxide 25 mmol/L (22-29); Chloride 102 mmol/L (98-107); Glomerular Filtration Rate 117.4 mL/min (90-130); Glucose 102 mg/dL (65-115); Osmolality Calculated 284 mOsm/kg (285-295); Potassium 4.3 mmol/L (3.5-5.1); Sodium 137 mmol/L (136-145)
== END 2020-05-22 20:10 | disposition home or self-care (01) ==
PROVIDERS: Emergency Provider Emergency Medicine; PCP Family Medicine
DX: R51.9 Headache, unspecified (principal); F17.210 Nicotine dependence, cigarettes, uncomplicated
CPT/HCPCS: 12345; 70450; 80048; 85025; 96361; 96374; 96375; 99282; 99283; J1200; J2765; J7030

== ENCOUNTER → 2020-05-27 08:24 | Outpatient (BNVA) | payer MEDICAID, SELFPAY | PROVIDERS: PCP Family Medicine; Visit Provider Counselor Mental Health | DX: F41.0 Panic disorder [episodic paroxysmal anxiety] (principal); F33.1 Major depressive disorder, recurrent, moderate; F41.1 Generalized anxiety disorder | CPT/HCPCS: 90832 ==

== ENCOUNTER → 2020-06-04 10:20 | Outpatient (BNVA) | payer MEDICAID, SELFPAY | PROVIDERS: PCP Family Medicine; Visit Provider Psychiatry & Neurology Psychiatry | DX: F41.0 Panic disorder [episodic paroxysmal anxiety] (principal); F33.1 Major depressive disorder, recurrent, moderate; F43.10 Post-traumatic stress disorder, unspecified; F81.9 Developmental disorder of scholastic skills, unspecified | CPT/HCPCS: 99214 ==

== ENCOUNTER → 2020-06-06 08:18 | Outpatient (BNVA) | payer MEDICAID, SELFPAY | PROVIDERS: PCP Family Medicine; Visit Provider Counselor Mental Health | DX: F41.0 Panic disorder [episodic paroxysmal anxiety] (principal); F33.1 Major depressive disorder, recurrent, moderate; F41.1 Generalized anxiety disorder | CPT/HCPCS: 90832 ==

== ENCOUNTER → 2020-06-13 07:47 | Outpatient (BNVA) | payer MEDICAID, SELFPAY | PROVIDERS: PCP Family Medicine; Visit Provider Counselor Mental Health | DX: F41.0 Panic disorder [episodic paroxysmal anxiety] (principal); F33.1 Major depressive disorder, recurrent, moderate; F41.1 Generalized anxiety disorder | CPT/HCPCS: 90832 ==

== ENCOUNTER → 2020-06-20 08:55 | Outpatient (BNVA) | payer MEDICAID, SELFPAY | PROVIDERS: PCP Family Medicine; Visit Provider Counselor Mental Health | DX: F41.0 Panic disorder [episodic paroxysmal anxiety] (principal); F33.1 Major depressive disorder, recurrent, moderate; F41.1 Generalized anxiety disorder | CPT/HCPCS: 90832 ==

== ENCOUNTER → 2020-06-24 07:42 | Outpatient (BNVA) | payer MEDICAID, SELFPAY | PROVIDERS: PCP Family Medicine; Visit Provider Psychiatry & Neurology Psychiatry | DX: F33.1 Major depressive disorder, recurrent, moderate (principal); F43.10 Post-traumatic stress disorder, unspecified; F41.0 Panic disorder [episodic paroxysmal anxiety]; F81.9 Developmental disorder of scholastic skills, unspecified; G47.00 Insomnia, unspecified | CPT/HCPCS: 99214 ==

== ENCOUNTER → 2020-07-18 08:05 | Outpatient (BNVA) | payer MEDICAID, SELFPAY | PROVIDERS: PCP Family Medicine; Visit Provider Nurse Practitioner Psychiatric/Mental Health | DX: F33.1 Major depressive disorder, recurrent, moderate (principal); F43.10 Post-traumatic stress disorder, unspecified; F41.0 Panic disorder [episodic paroxysmal anxiety]; F81.9 Developmental disorder of scholastic skills, unspecified | CPT/HCPCS: 99213 ==

== ENCOUNTER → 2020-07-19 07:59 | Outpatient (BNVA) | payer MEDICAID, SELFPAY | PROVIDERS: PCP Family Medicine; Visit Provider Counselor Mental Health | DX: F41.0 Panic disorder [episodic paroxysmal anxiety] (principal); F33.1 Major depressive disorder, recurrent, moderate; F41.1 Generalized anxiety disorder | CPT/HCPCS: 90832 ==

== ENCOUNTER → 2020-07-26 09:26 | Outpatient (BNVA) | payer MEDICAID, SELFPAY | PROVIDERS: PCP Family Medicine; Visit Provider Counselor Mental Health | DX: F41.0 Panic disorder [episodic paroxysmal anxiety] (principal); F33.1 Major depressive disorder, recurrent, moderate; F41.1 Generalized anxiety disorder; F81.9 Developmental disorder of scholastic skills, unspecified; F43.10 Post-traumatic stress disorder, unspecified | CPT/HCPCS: 90832 ==

== ENCOUNTER → 2020-08-06 08:21 | Outpatient (BNVA) | payer MEDICAID, SELFPAY | PROVIDERS: PCP Family Medicine; Visit Provider Counselor Mental Health | DX: F41.0 Panic disorder [episodic paroxysmal anxiety] (principal); F33.1 Major depressive disorder, recurrent, moderate; F41.1 Generalized anxiety disorder; F81.9 Developmental disorder of scholastic skills, unspecified; F43.10 Post-traumatic stress disorder, unspecified | CPT/HCPCS: 90832 ==

== ENCOUNTER → 2020-08-16 08:08 | Outpatient (BNVA) | payer MEDICAID, SELFPAY | PROVIDERS: PCP Family Medicine; Visit Provider Psychiatry & Neurology Psychiatry | DX: F33.1 Major depressive disorder, recurrent, moderate (principal); F43.10 Post-traumatic stress disorder, unspecified; F41.0 Panic disorder [episodic paroxysmal anxiety]; F81.9 Developmental disorder of scholastic skills, unspecified | CPT/HCPCS: 99214 ==

== ENCOUNTER → 2020-08-23 08:12 | Outpatient (BNVA) | payer MEDICAID, SELFPAY | PROVIDERS: PCP Family Medicine; Visit Provider Counselor Mental Health | DX: F41.0 Panic disorder [episodic paroxysmal anxiety] (principal); F33.1 Major depressive disorder, recurrent, moderate; F41.1 Generalized anxiety disorder; F81.9 Developmental disorder of scholastic skills, unspecified; F43.10 Post-traumatic stress disorder, unspecified | CPT/HCPCS: 90832 ==

== ENCOUNTER → 2020-08-29 07:33 | Outpatient (BNVA) | payer MEDICAID, SELFPAY | PROVIDERS: PCP Family Medicine; Visit Provider Psychiatry & Neurology Psychiatry | DX: F33.1 Major depressive disorder, recurrent, moderate (principal); F43.10 Post-traumatic stress disorder, unspecified; F41.0 Panic disorder [episodic paroxysmal anxiety]; F81.9 Developmental disorder of scholastic skills, unspecified | CPT/HCPCS: 99214 ==

== ENCOUNTER → 2020-10-14 14:12 | Outpatient (BNVA) | payer MEDICAID, SELFPAY | PROVIDERS: PCP Family Medicine; Visit Provider Counselor Mental Health | DX: F41.0 Panic disorder [episodic paroxysmal anxiety] (principal); F33.1 Major depressive disorder, recurrent, moderate; F41.1 Generalized anxiety disorder; F81.9 Developmental disorder of scholastic skills, unspecified; F43.10 Post-traumatic stress disorder, unspecified | CPT/HCPCS: 90834 ==

== ENCOUNTER → 2020-11-07 15:54 | Outpatient (BNVA) | payer MEDICAID, SELFPAY | PROVIDERS: PCP Family Medicine; Visit Provider Family Medicine | DX: G43.709 Chronic migraine without aura, not intractable, without status migrainosus (principal); R11.0 Nausea; Z13.1 Encounter for screening for diabetes mellitus; Z13.220 Encounter for screening for lipoid disorders; Z13.6 Encounter for screening for cardiovascular disorders; F33.1 Major depressive disorder, recurrent, moderate | CPT/HCPCS: 80053; 80061; 83036 ==

== ENCOUNTER → 2020-11-22 10:29 | Outpatient (BNVA) | payer MEDICAID, SELFPAY ==
[2020-11-14 16:56] VITALS: BP 124/76; BMI 55.7
== END ==
PROVIDERS: PCP Family Medicine; Visit Provider Nurse Practitioner Family
DX: J06.9 Acute upper respiratory infection, unspecified (principal); Z20.822 Contact with and (suspected) exposure to COVID-19
CPT/HCPCS: 87635

== ENCOUNTER → 2020-11-28 09:27 | Outpatient (BNVA) | payer MEDICAID, SELFPAY ==
[2020-11-14 16:56] VITALS: BP 124/76; BMI 55.7
== END ==
PROVIDERS: PCP Family Medicine; Visit Provider Emergency Medicine
DX: R25.2 Cramp and spasm (principal)
CPT/HCPCS: 80048

== ENCOUNTER 2020-12-08 16:47 | Outpatient (CLI) | payer MEDICAID, SELFPAY ==
[2020-11-14 16:56] VITALS: BP 124/76; BMI 55.7
--- NOTE | 2020-12-08 17:31 | XRR_ITS ---
PROCEDURE INFORMATION: Exam: XR Left Forearm Exam date and time: 12/08/2020 5:31 PM Age: 30 years old Clinical indication: Injury or trauma; Fall; Blunt trauma (contusions or hematomas); Arm, lower; Left; Additional info: M79.602 - pain in left arm TECHNIQUE: Imaging protocol: XR Left forearm. Views: 2 views. COMPARISON: No relevant prior studies available. FINDINGS: Bones/joints: Normal. Soft tissues: Normal. XR/XR forearm LT 2V [id number] IMPRESSION: No acute findings.
--- NOTE | 2020-12-08 17:31 | XRR_ITS ---
PROCEDURE INFORMATION: Exam: XR Left Wrist Exam date and time: 12/08/2020 5:31 PM Age: 30 years old Clinical indication: Injury or trauma; Fall; Blunt trauma (contusions or hematomas); Wrist; Left; Additional info: M25.532 - pain in left wrist TECHNIQUE: Imaging protocol: XR Left wrist. Views: 1 or 2 views. COMPARISON: CR (UP EXM, ) 12/08/2020 5:37 PM FINDINGS: Bones/joints: Normal. Soft tissues: Normal. XR/XR wrist LT w scaphoid [id number] IMPRESSION: No acute findings.
--- NOTE | 2020-12-08 17:31 | XRR_ITS ---
PROCEDURE INFORMATION: Exam: XR Left Elbow Exam date and time: 12/08/2020 5:31 PM Age: 30 years old Clinical indication: Injury or trauma; Fall; Blunt trauma (contusions or hematomas); Elbow; Left; Additional info: M25.522 - pain in left elbow TECHNIQUE: Imaging protocol: XR Left elbow. Views: 3 or more views. COMPARISON: No relevant prior studies available. FINDINGS: Bones/joints: Normal. Soft tissues: Normal. XR/XR elbow LT min 3V* [id number] IMPRESSION: No acute findings.
== END 2020-12-08 16:48 | disposition home or self-care (01) ==
PROVIDERS: Visit Provider Emergency Medicine
DX: M25.522 Pain in left elbow (principal); M25.532 Pain in left wrist; M79.602 Pain in left arm
CPT/HCPCS: 73080; 73090; 73110

== ENCOUNTER → 2020-12-10 07:45 | Outpatient (BNVA) | payer MEDICAID, SELFPAY ==
[2020-11-14 16:56] VITALS: BP 124/76; BMI 55.7
== END ==
PROVIDERS: Visit Provider Counselor Mental Health
DX: F41.0 Panic disorder [episodic paroxysmal anxiety] (principal); F33.1 Major depressive disorder, recurrent, moderate; F41.1 Generalized anxiety disorder; F81.9 Developmental disorder of scholastic skills, unspecified; F43.10 Post-traumatic stress disorder, unspecified
CPT/HCPCS: 90834

== ENCOUNTER → 2020-12-30 10:46 | Outpatient (BNVA) | payer MEDICAID, SELFPAY ==
[2020-12-24 13:35] VITALS: BP 124/76; BMI 55.7
== END ==
PROVIDERS: Referring Provider Nurse Practitioner Family; Visit Provider Orthopaedic Surgery
DX: S49.90XA Unspecified injury of shoulder and upper arm, unspecified arm, initial encounter (principal); X58.XXXA Exposure to other specified factors, initial encounter
CPT/HCPCS: 73030

== ENCOUNTER 2021-01-16 06:51 | Outpatient (CLI) | payer MEDICAID, SELFPAY ==
[2020-11-14 16:56] VITALS: BP 124/76; BMI 55.7
[2020-12-24 13:35] VITALS: BP 124/76; BMI 55.7
--- NOTE | 2021-01-16 07:15 | MR_ITS ---
WS: [id number] MRI LEFT SHOULDER HISTORY: M25.512 - Pain in left shoulder COMPARISON: 12/30/2020 TECHNIQUE: Multiplanar sequences of the shoulder joint are submitted. This study is extremely limited due to motion artifact. Patient was unable to remain still for this e xamination due to pain. No significant amount of marrow edema is identified. There is a very small amount of fluid in the sub deltoid bursa. No rotator cuff tear is identified. Small tears would easily be obscured. There is a v shawn small amount of increased fluid like signal on the proton density sequence in the distal supraspi natus. This could be a focal insertion site tear or tendinopathy. No shoulder dislocation. The labrum is not well visualized. Biceps tendon remains in the bicipital groove. MR/MR shoulder LT wo con* [id number] IMPRESSION: 1. MRI significantly limited by motion. 2. Tiny insertion site tear versus tendinopathy of the supraspinatus tendon. 3. No dislocation or marrow edema.
== END 2021-01-16 06:52 | disposition home or self-care (01) ==
LOC: RADSHAW 06:57
PROVIDERS: PCP Nurse Practitioner Family; Visit Provider Nurse Practitioner Family
DX: F41.0 Panic disorder [episodic paroxysmal anxiety] (principal); F33.1 Major depressive disorder, recurrent, moderate; F43.10 Post-traumatic stress disorder, unspecified; F81.9 Developmental disorder of scholastic skills, unspecified; G47.00 Insomnia, unspecified
CPT/HCPCS: 73221; 99214

== ENCOUNTER → 2021-01-24 07:20 | Outpatient (BNVA) | payer MEDICAID, SELFPAY ==
[2020-12-24 13:35] VITALS: BP 124/76; BMI 55.7
== END ==
PROVIDERS: PCP Nurse Practitioner Family; Visit Provider Counselor Mental Health
DX: F41.0 Panic disorder [episodic paroxysmal anxiety] (principal); F33.1 Major depressive disorder, recurrent, moderate; F41.1 Generalized anxiety disorder; F81.9 Developmental disorder of scholastic skills, unspecified; F43.10 Post-traumatic stress disorder, unspecified
CPT/HCPCS: 90834

== ENCOUNTER → 2021-01-27 15:19 | Outpatient (BNVA) | payer MEDICAID, SELFPAY ==
[2020-12-24 13:35] VITALS: BP 124/76; BMI 55.7
== END ==
PROVIDERS: PCP Nurse Practitioner Family; Visit Provider Psychiatry & Neurology Psychiatry
DX: F43.10 Post-traumatic stress disorder, unspecified (principal); F33.1 Major depressive disorder, recurrent, moderate; F41.0 Panic disorder [episodic paroxysmal anxiety]; F81.9 Developmental disorder of scholastic skills, unspecified; G47.00 Insomnia, unspecified
CPT/HCPCS: 99214

== ENCOUNTER → 2021-01-31 08:25 | Outpatient (BNVA) | payer MEDICAID, SELFPAY ==
[2020-12-24 13:35] VITALS: BP 124/76; BMI 55.7
== END ==
PROVIDERS: PCP Nurse Practitioner Family; Visit Provider Counselor Mental Health
DX: F41.0 Panic disorder [episodic paroxysmal anxiety] (principal); F33.1 Major depressive disorder, recurrent, moderate; F41.1 Generalized anxiety disorder; F81.9 Developmental disorder of scholastic skills, unspecified; F43.10 Post-traumatic stress disorder, unspecified
CPT/HCPCS: 90832

== ENCOUNTER → 2021-07-03 13:39 | Outpatient (BNVA) | payer MEDICAID, SELFPAY ==
[2020-12-24 13:35] VITALS: BP 124/76; BMI 55.7
== END ==
PROVIDERS: PCP Nurse Practitioner Family; Visit Provider Psychiatry & Neurology Psychiatry
DX: F33.1 Major depressive disorder, recurrent, moderate (principal); F43.10 Post-traumatic stress disorder, unspecified; F41.0 Panic disorder [episodic paroxysmal anxiety]; F81.9 Developmental disorder of scholastic skills, unspecified
CPT/HCPCS: 99214

== ENCOUNTER → 2021-07-29 09:10 | Outpatient (BNVA) | payer MEDICAID, SELFPAY ==
[2020-12-24 13:35] VITALS: BP 124/76; BMI 55.7
== END ==
PROVIDERS: PCP Nurse Practitioner Family; Visit Provider Psychiatry & Neurology Psychiatry
DX: F33.1 Major depressive disorder, recurrent, moderate (principal); F43.10 Post-traumatic stress disorder, unspecified; F41.0 Panic disorder [episodic paroxysmal anxiety]; F81.9 Developmental disorder of scholastic skills, unspecified; G47.00 Insomnia, unspecified
CPT/HCPCS: 99214

== ENCOUNTER → 2021-09-11 17:47 | Outpatient (BNVA) | payer MEDICAID, SELFPAY ==
[2020-12-24 13:35] VITALS: BP 124/76; BMI 55.7
== END ==
PROVIDERS: PCP Nurse Practitioner Family; Visit Provider Emergency Medicine
DX: M62.838 Other muscle spasm (principal)
CPT/HCPCS: 80048; 85025

== ENCOUNTER → 2021-10-07 15:24 | Outpatient (BNVA) | payer MEDICAID, SELFPAY ==
[2020-12-24 13:35] VITALS: BP 124/76; BMI 55.7
== END ==
PROVIDERS: PCP Family Medicine; Visit Provider Emergency Medicine
DX: Z20.5 Contact with and (suspected) exposure to viral hepatitis (principal); Z20.2 Contact with and (suspected) exposure to infections with a predominantly sexual mode of transmission; R39.9 Unspecified symptoms and signs involving the genitourinary system
CPT/HCPCS: 80074; 81000; 87491; 87591; 87661; 87806

== ENCOUNTER → 2021-10-21 13:34 | Outpatient (BNVA) | payer MEDICAID, SELFPAY ==
[2020-12-24 13:35] VITALS: BP 124/76; BMI 55.7
== END ==
PROVIDERS: PCP Family Medicine; Visit Provider Family Medicine
DX: A59.01 Trichomonal vulvovaginitis (principal); A74.9 Chlamydial infection, unspecified
CPT/HCPCS: 87491; 87591; 87661

== ENCOUNTER → 2022-06-11 08:51 | Outpatient (BNVA) | payer MEDICAID, SELFPAY ==
[2020-12-24 13:35] VITALS: BP 124/76; BMI 55.7
== END ==
PROVIDERS: PCP Family Medicine; Referring Provider Emergency Medicine; Visit Provider Emergency Medicine
DX: M25.572 Pain in left ankle and joints of left foot (principal); M25.571 Pain in right ankle and joints of right foot; M79.89 Other specified soft tissue disorders
CPT/HCPCS: 73610

== ENCOUNTER 2022-09-09 11:49 | Emergency (ER) | payer MEDICAID, SELFPAY ==
[2020-12-24 13:35] VITALS: BP 124/76; BMI 55.7
--- NOTE | 2022-09-09 11:55 | W.ED.PSYCHS ---
HPI - Psych General: Chief Complaint: Psychiatric Symptoms Stated Complaint: SI Time Seen by Provider: 09/09/22 11:55 History of Present Illness: Ms. Alfaro is a 32-year-old lady with significant past history of major depressive disorder, panic disorder, PTSD, history of traumatic brain injury, insomnia presenting to the emergency department for worsening panic attacks and suicidal thoughts. She reports longstanding history of poorly controlled symptoms however she has had increased stressors over the past weeks where she is the primary caregiver for a family member with cancer and her grandmother who has dementia. She is noted increased frequency of panic attacks which she describes as varying somewhat but usually involving panic feeling with chest pain and anxiety. She reports over the past day having suicidal thoughts because of her symptoms. She denies specific plan or history of suicide attempts. She has never thought of ways to kill herself. She reports compliance with her medication regimen however has difficulty as the anxiety medications that she is currently on she does not feel like help. A few years ago she was on lorazepam and did report improvement from that. She notes difficulty with sleep. Normal p.o. intake. No other specific changes in health, exacerbating, or alleviating factors identified. Patient reports history of hospitalization though nothing within the past few years, she did not find therapeutic benefit as it increased her anxiety being around strangers. Onset (ago): day(s) Duration: constant History of same: Yes Context: significant life stressor Associated psychiatric symptoms: suicidal ideation and racing thoughts Review of Systems General: Reports: 10 or more systems reviewed and unremarkable except in HPI and below PFSH ED PFSH: Medical History Abdominal pain determined by examination Asthma, mild intermittent, well-controlled Chronic constipation Constipation GERD (gastroesophageal reflux disease) Insomnia Insomnia Insomnia Intellectual delay Lipomatosis Lumbar pain Major depressive disorder, recurrent, moderate MDD (major depressive disorder) Obesity Panic Panic disorder Psychiatric care PTSD (post-traumatic stress disorder) Surgical History History of dilation and curettage History of hysterectomy History of laparoscopic cholecystectomy History of oral surgery (~2014) History of Shanae-en-Y gastric bypass (~10/2015) History of sleeve gastrectomy History of tonsillectomy and adenoidectomy Family History Mother Hypertension Diabetes Thyroid disease Father Hypertension Father Heart disease Family/Other Heart disease Denies family history of Anesthesia complication Bleeding disorder Social History Smoking and tobacco status: current every day smoker cigarettes Packs smoked per day: 0.5 Years cigarettes smoked: 10 Quit status (tobacco): has tried quititng Second hand smoke exposure: Yes Alcohol intake: never Desire information about alcohol rehabilitation?: No Substance/Drug Use: never Desire information about substance/drug rehabilitation?: No Adopted: No Caregiver/support person: Yes Lives independently: No Household members: family Housing: House Marital status: Marital status details: Since April 2020 Number of children: 1 Number of grandchildren: 0 Highest education level completed: 10th Grade service: No Current occupational status: unemployed Current occupational exposures/hazards: No Pets and animals: Yes Pets & animals: dog(s) Sexually active: Yes Do you think of yourself as: Straight/Heterosexual Current gender identity: Female Katie/Temple: Zoroastrianism Special katie needs: No Agree to transfusion: Yes Financial difficulty paying for basics: Somewhat Hard Female Reproductive History: Para: 1 Spontaneous abortions: Yes Physical Exam Const: COMMON NORMALS: alert GENERAL APPEARANCE: cooperative and well developed HENMT: COMMON NORMALS: normocephalic and atraumatic HEAD & SCALP: normocephalic and atraumatic Eye: COMMON NORMALS: conjunctivae normal CONJUNCTIVA: Yes conjunctivae normal SCLERA: sclerae normal Neck/C-Spine: COMMON NORMALS: supple GENERAL: Yes trachea midline Resp: COMMON NORMALS: clear to auscultation bilaterally EFFORT & INSPECTION: Yes able to speak in complete sentences AUSCULTATION: clear to auscultation bilaterally Cardio: COMMON NORMALS: regular rate and regular rhythm RATE: regular rate RHYTHM: regular rhythm GI: COMMON NORMALS: Soft to palpation PALPATION: Yes Soft to palpation and No Tenderness to palpation present (GI) Extremity: GENERAL: Yes normal exam except as noted and No edema Neuro: COMMON NORMALS: moves all extremities SENSORIUM/ORIENTATION: Yes alert and No Orientation impaired Psych: COMMON NORMALS: mental status grossly normal and Normal thought process present THOUGHT PROCESS: Normal thought process present Course Vital Signs: Vital signs: Vital Signs Respiratory Rate 18 05/10/23 12:28 Pulse Oximetry 100 05/10/23 12:28 Oxygen Delivery Me thod Room Air 09/09/22 12:28 [facility] - Psych Medical Decision Making 32-year-old lady presenting due to worsening anxiety and panic attacks. At times the panic attacks make her feel suicidal. She is not currently on medications that adequately control symptoms. She denies specific suicidal plan and does not have suicidal thoughts outside of panic disorder. Additionally patient reports that prior hospitalizations have not been beneficial. Discussed with psychiatry service for review of recent [facility]/mental health notes. No reported concerns for safety. I will plan to prescribe a short course of lorazepam, patient understands need for follow-up with psychiatric care provider. The results of ED evaluation were discussed with the patient including prescriptions and/or symptomatic cares (if applicable) including appropriate and responsible use, followup plan, and return precautions. The patient verbalized understanding and felt safe for discharge. Medical Records I reviewed the patient's medical records. Lab Data I reviewed the patient's lab results. Discharge Plan Discharge Patient Disposition: Home Clinical Impression: Panic disorder Condition: Stable Prescriptions: New lorazepam 1 mg tablet 1 mg PO DAILY PRN (Reason: anxiety) Qty: 10 0RF No Action epinephrine 0.3 mg/0.3 mL auto-injector 0.3 mg IM Q15M PRN Rx Instructions: for 2 doses albuterol sulfate [ProAir HFA] 90 mcg/actuation HFA aerosol inhaler 2 puff INHALATION Q6H PRN (Reason: shortness of breath or wheezing) 30 Days Qty: 18 5RF metoprolol tartrate 100 mg tablet 100 mg PO BID pramipexole 0.25 mg tablet 0.25 mg PO TID 30 Days Qty: 90 5RF omeprazole 40 mg capsule,delayed release(DR/EC) 40 mg PO DAILY 30 Days Qty: 30 5RF Linzess 72 mcg capsule 72 mcg PO DAILY 30 Days Qty: 30 5RF Qulipta 30 mg tablet 30 mg PO BID doxepin 25 mg capsule 25 mg PO BID Qty: 60 2RF Rx Instructions: Take together with Doxepin 75mg at bedtime doxepin 75 mg capsule 75 mg PO .qhs 30 Days Qty: 30 2RF escitalopram oxalate [Lexapro] 20 mg tablet 20 mg PO DAILY Qty: 30 2RF eszopiclone [Lunesta] 3 mg tablet 3 mg PO .HS Qty: 30 2RF aripiprazole [Abilify] 2 mg tablet 2 mg PO DAILY Qty: 30 1RF Discharge Orders: Discharge ED (Routine); Ordered 09/09/22 Ordered By: Ye Cyr Referrals: Julia Casillas MD [Primary Care Provider] - Discharge Diet: Usual diet Discharge Activity: Resume usual activity Patient Instructions: Lorazepam (By mouth), Panic Disorder (ED) Activity Restrictions/Additional Instructions: Thank you for visiting the emergency department. You were seen and evaluated for panic disorder and depression. After discussion I believe that continued outpatient management is appropriate. Please continue your medication regimen. I will prescribe lorazepam 1 mg by mouth daily as needed for anxiety. Use this cautiously. [facility] [phone] If you or someone you care for is experiencing a psychiatric emergency, please call the crisis hotline ([facility]) 24-hours a day, 7 days a week at [phone]. The crisis stabilization center is located on the [address] side of the hospital campus and has walk-in hours 11 AM to 9 PM. Return to the emergency department for suicidal thoughts, worsening symptoms, uncontrolled symptoms, or anything else that you are concerned about and feel needs emergency department evaluation. Coding Level of Care Code ED Sales Account Manager for [employer]
[2022-09-09 12:25] VITALS: BMI 51.1
[2022-09-09 12:28] VITALS: RESP 18; O2SAT 100
== END 2022-09-09 13:30 | disposition home or self-care (01) ==
PROVIDERS: Emergency Provider Emergency Medicine; PCP Family Medicine
DX: F41.0 Panic disorder [episodic paroxysmal anxiety] (principal); F17.210 Nicotine dependence, cigarettes, uncomplicated
CPT/HCPCS: 99282

== ENCOUNTER → 2022-10-13 10:28 | Outpatient (BNVA) | payer MEDICAID, SELFPAY ==
[2020-12-24 13:35] VITALS: BP 124/76; BMI 55.7
== END ==
PROVIDERS: PCP Family Medicine; Visit Provider Surgery
DX: D17.9 Benign lipomatous neoplasm, unspecified (principal); R22.2 Localized swelling, mass and lump, trunk; R22.33 Localized swelling, mass and lump, upper limb, bilateral
CPT/HCPCS: 99203

== ENCOUNTER → 2022-10-19 09:26 | Outpatient (BNVA) | payer MEDICAID, SELFPAY ==
[2020-12-24 13:35] VITALS: BP 124/76; BMI 55.7
== END ==
PROVIDERS: PCP Family Medicine; Visit Provider Emergency Medicine
DX: M25.531 Pain in right wrist (principal); M79.641 Pain in right hand
CPT/HCPCS: 73110; 73130

== ENCOUNTER 2022-11-19 08:59 | Day surgery (SDC) | payer MEDICAID, SELFPAY ==
[2020-12-24 13:35] VITALS: BP 124/76; BMI 55.7
[2022-11-19] VITALS (11 sets, daily range): BP systolic 112–148; BP diastolic 77–89; PULSE 73–89; RESP 16–18; TEMP 36.1; O2SAT 90–98
--- NOTE | 2022-11-19 09:30 | P.HP_ITS ---
Providers/Chief Complaint Primary Care Provider: Julia Casillas MD Chief Complaint: D17.9 History of Present Illness Terri Alfaro is a 32 year old female Medications/Allergies Home Medications Medication Instructions Recorded Confirmed Last Taken Type albuterol sulfate 90 mcg/actuation 2 puff inhalation Q6H PRN 04/02/20 11/19/22 08/21/22 Rx aerosol inhaler (ProAir HFA) shortness of breath or wheezing 30 days #18 grams epinephrine 0.3 mg/0.3 mL 0.3 mg IM Q15M PRN Allergic 10/24/20 11/19/22 Unknown History injection, auto-injector Symptoms metoprolol tartrate 100 mg tablet 100 mg PO BID 10/21/21 11/19/22 11/18/22 History linaclotide 72 mcg capsule 72 mcg PO DAILY 30 days #30 caps 01/26/22 11/19/22 11/18/22 Rx (Linzess) omeprazole 40 mg capsule,delayed 40 mg PO DAILY 30 days #30 caps 01/26/22 11/19/22 11/18/22 Rx release pramipexole 0.25 mg tablet 0.25 mg PO TID restless leg 30 01/26/22 11/19/22 11/18/22 Rx days #90 tabs atogepant 30 mg tablet (Qulipta) 30 mg PO BID 04/29/22 11/19/22 11/18/22 History lorazepam 1 mg tablet 1 mg PO DAILY PRN anxiety #10 tabs 09/09/22 11/19/22 11/05/22 Rx aripiprazole 2 mg tablet (Abilify) 2 mg PO DAILY #30 tabs 11/16/22 11/19/22 11/18/22 Rx doxepin 25 mg capsule 25 mg PO BID #60 caps 11/16/22 11/19/22 11/18/22 Rx doxepin 75 mg capsule 75 mg PO .qhs 30 days #30 caps 11/16/22 11/19/22 11/18/22 Rx escitalopram oxalate 20 mg tablet 20 mg PO DAILY #30 tabs 11/16/22 11/19/22 11/18/22 Rx (Lexapro) eszopiclone 3 mg tablet (Lunesta) 3 mg PO .HS #30 tabs 11/18/22 11/19/22 11/18/22 Rx hydrocodone 10 mg-acetaminophen 1 tab PO Q6H PRN pain #20 tabs 11/19/22 Unknown Rx 325 mg tablet Allergies Allergy/AdvReac Type Severity Reaction Status Date / Time onabotulinumtoxinA Allergy Severe ALGY-Anaphy Verified 11/19/22 09:10 [From Botox] laxis sulfabenzamide Allergy Severe ALGY-Hives Verified 11/19/22 09:10 azithromycin [From Zithromax] Allergy Unknown Unknown Verified 11/19/22 09:10 butalbital [From Fioricet] Allergy Unknown Unknown Verified 11/19/22 09:10 erenumab-aooe Allergy Unknown Unknown Verified 11/19/22 09:10 [From Aimovig Autoinjector] latex Allergy Unknown Unknown Verified 11/19/22 09:10 Penicillins Allergy Unknown Unknown Verified 11/19/22 09:10 warfarin [From Coumadin] Allergy Unknown Unknown Verified 11/19/22 09:10 morphine Allergy ADR-Irritab Verified 11/19/22 09:10 le sertraline [From Zoloft] Allergy ALGY-Rash Verified 11/19/22 09:10 PFSH Acute PFSH: Medical History Abdominal pain determined by examination Asthma, mild intermittent, well-controlled Chronic constipation Constipation GERD (gastroesophageal reflux disease) Insomnia Insomnia Insomnia Intellectual delay Lipomatosis Lumbar pain Major depressive disorder, recurrent, moderate MDD (major depressive disorder) Obesity Panic Panic disorder Psychiatric care PTSD (post-traumatic stress disorder) Surgical History History of dilation and curettage History of hysterectomy History of laparoscopic cholecystectomy History of oral surgery (~2014) History of Shanae-en-Y gastric bypass (~10/2015) History of sleeve gastrectomy History of tonsillectomy and adenoidectomy Family History Mother Hypertension Diabetes Thyroid disease Father Hypertension Father Heart disease Family/Other Heart disease Denies family history of Anesthesia complication Bleeding disorder Social History Smoking and tobacco status: current every day smoker cigarettes Packs smoked per day: 0.5 Years cigarettes smoked: 10 Quit status (tobacco): has tried quititng Second hand smoke exposure: Yes Alcohol intake: never Desire information about alcohol rehabilitation?: No Substance/Drug Use: never Desire information about substance/drug rehabilitation?: No Adopted: No Caregiver/support person: Yes Lives independently: No Household members: family Housing: House Marital status: Marital status details: Since April 2020 Number of children: 1 Number of grandchildren: 0 Highest education level completed: 10th Grade service: No Current occupational status: unemployed Current occupational exposures/hazards: No Pets and animals: Yes Pets & animals: dog(s) Sexually active: Yes Do you think of yourself as: Straight/Heterosexual Current gender identity: Female Katie/Mormonism: Pentecostalism Special katie needs: No Agree to transfusion: Yes Financial difficulty paying for basics: Somewhat Hard Female Reproductive History: Para: 1 Spontaneous abortions: Yes Vitals/I&O/Wt Last Vital Signs Temp 97 F L 11/19/22 11:42 Pulse 80 11/19/22 12:10 Resp 18 11/19/22 12:10 BP 115/87 11/19/22 12:10 Pulse Ox 92 11/19/22 12:10 O2 Del Method Room Air 11/19/22 12:10 11/18/22 11/19/22 11/19/22 22:59 06:59 14:59 Intake Total 0 / 0 Output Total 25 / 25 Balance -25 / -25 Weight last 48 hrs Weight 285 lb A&P Assessment and plan (1) Subcutaneous mass of both upper extremities: (2) Subcutaneous mass of abdominal wall: Plan Excision of subcutaneous masses of bilateral arms and abdomen Attestations Medical Necessity Statement*: Home Coding Level of Care Code Acute Code for Chg Fwd Diagnoses Subcutaneous mass of both upper extremities R22.33 Subcutaneous mass of abdominal wall R22.2
[2022-11-19] MEDS: sodium chloride 0.9% 1,000 ML 30 ML IV (09:32)
--- NOTE | 2022-11-19 09:50 | ANES.PREANE2 ---
Pre-Anesthetic Assessment Height/Weight: Height 1.63 m Weight 129.274 kg Temp Pulse Resp BP Pulse Ox O2 Del Method 97.0 F L 79 18 137/86 98 Room Air 11/19/22 09:15 11/19/22 09:15 11/19/22 09:15 11/19/22 09:15 11/19/22 09:15 11/19/22 09:22 Operation Date: 11/19/22 11:10 Proposed Procedures p Excision Mass/Lesion/Cyst Upper Extremit 51486 ,: D17.[address] CHAND USE GENERAL ANESTHESIA(Not Applicable) - Nilson Chand DO Familial anesthetic complications: none Was Beta Carolyn taken within 24 hours: Yes Was Clonidine taken within 24 hours: N/A Last intake: Intake Last Liquid Date 11/18/22 Last Liquid Time 21:00 Last Solid Date 11/18/22 Last Solid Time 21:00 Social Tobacco and No alcohol Exam alert, oriented x 3, clear to auscultation bilaterally and regular rate & rhythm Airway Submandibular: within normal limits Cervical ROM: within normal limits Mallampati: Class II Dentition: false Pulmonary Asthma and Chronic Obstructive Pulmonary Disease CV/HEM Hypertension GI Gastroesophageal Reflux Disease Metabolic Morbid Obesity Neuropsych Anxiety and Depression Anesthetic Plan ASA status: 3 Anesthesia: General Medications/Allergies Home Medications Medication Instructions Recorded Confirmed Last Taken Type albuterol sulfate 90 mcg/actuation 2 puff inhalation Q6H PRN 04/02/20 11/19/22 08/21/22 Rx aerosol inhaler (ProAir HFA) shortness of breath or wheezing 30 days #18 grams epinephrine 0.3 mg/0.3 mL 0.3 mg IM Q15M PRN Allergic 10/24/20 11/19/22 Unknown History injection, auto-injector Symptoms metoprolol tartrate 100 mg tablet 100 mg PO BID 10/21/21 11/19/22 11/18/22 History linaclotide 72 mcg capsule 72 mcg PO DAILY 30 days #30 caps 01/26/22 11/19/22 11/18/22 Rx (Linzess) omeprazole 40 mg capsule,delayed 40 mg PO DAILY 30 days #30 caps 01/26/22 11/19/22 11/18/22 Rx release pramipexole 0.25 mg tablet 0.25 mg PO TID restless leg 30 01/26/22 11/19/22 11/18/22 Rx days #90 tabs atogepant 30 mg tablet (Qulipta) 30 mg PO BID 04/29/22 11/19/22 11/18/22 History lorazepam 1 mg tablet 1 mg PO DAILY PRN anxiety #10 tabs 09/09/22 11/19/22 11/05/22 Rx aripiprazole 2 mg tablet (Abilify) 2 mg PO DAILY #30 tabs 11/16/22 11/19/22 11/18/22 Rx doxepin 25 mg capsule 25 mg PO BID #60 caps 11/16/22 11/19/22 11/18/22 Rx doxepin 75 mg capsule 75 mg PO .qhs 30 days #30 caps 11/16/22 11/19/22 11/18/22 Rx escitalopram oxalate 20 mg tablet 20 mg PO DAILY #30 tabs 11/16/22 11/19/22 11/18/22 Rx (Lexapro) eszopiclone 3 mg tablet (Lunesta) 3 mg PO .HS #30 tabs 11/18/22 11/19/22 11/18/22 Rx Allergies Allergy/AdvReac Type Severity Reaction Status Date / Time onabotulinumtoxinA Allergy Severe ALGY-Anaphy Verified 11/19/22 09:10 [From Botox] laxis sulfabenzamide Allergy Severe ALGY-Hives Verified 11/19/22 09:10 azithromycin [From Zithromax] Allergy Unknown Unknown Verified 11/19/22 09:10 butalbital [From Fioricet] Allergy Unknown Unknown Verified 11/19/22 09:10 erenumab-aooe Allergy Unknown Unknown Verified 11/19/22 09:10 [From Aimovig Autoinjector] latex Allergy Unknown Unknown Verified 11/19/22 09:10 Penicillins Allergy Unknown Unknown Verified 11/19/22 09:10 warfarin [From Coumadin] Allergy Unknown Unknown Verified 11/19/22 09:10 morphine Allergy ADR-Irritab Verified 11/19/22 09:10 le sertraline [From Zoloft] Allergy ALGY-Rash Verified 11/19/22 09:10 Current Medications Generic Name Dose Route Start Last Admin Trade Name Freq PRN Reason Stop Dose Admin Sodium Chloride 1,000 mls @ 30 mls/hr 11/19/22 09:15 07/20/23 09:32 Sodium Chloride 0.9% IV 11/20/22 09:14 30 mls/hr .Q24H LAURA Administration PFSH Anesthesia Medical History Abdominal pain determined by examination Asthma, mild intermittent, well-controlled Chronic constipation Constipation GERD (gastroesophageal reflux disease) Insomnia Insomnia Insomnia Intellectual delay Lipomatosis Lumbar pain Major depressive disorder, recurrent, moderate MDD (major depressive disorder) Obesity Panic Panic disorder Psychiatric care PTSD (post-traumatic stress disorder) Surgical History History of dilation and curettage History of hysterectomy History of laparoscopic cholecystectomy History of oral surgery (~2014) History of Shanae-en-Y gastric bypass (~10/2015) History of sleeve gastrectomy History of tonsillectomy and adenoidectomy Family History Mother Hypertension Diabetes Thyroid disease Father Hypertension Father Heart disease Family/Other Heart disease Denies family history of Anesthesia complication Bleeding disorder Social History Smoking and tobacco status: current every day smoker cigarettes Packs smoked per day: 0.5 Years cigarettes smoked: 10 Quit status (tobacco): has tried quititng Second hand smoke exposure: Yes Alcohol intake: never Desire information about alcohol rehabilitation?: No Substance/Drug Use: never Desire information about substance/drug rehabilitation?: No Adopted: No Caregiver/support person: Yes Lives independently: No Household members: family Housing: House Marital status: Marital status details: Since April 2020 Number of children: 1 Number of grandchildren: 0 Highest education level completed: 10th Grade service: No Current occupational status: unemployed Current occupational exposures/hazards: No Pets and animals: Yes Pets & animals: dog(s) Sexually active: Yes Do you think of yourself as: Straight/Heterosexual Current gender identity: Female Katie/Rastafari: Mormonism Special katie needs: No Agree to transfusion: Yes Financial difficulty paying for basics: Somewhat Hard Female Reproductive History Para: 1 Spontaneous abortions: Yes Data Anesthesia Cardiac Studies: No Data to Display
[2022-11-19] MEDS: vancomycin 1,500 MG/300 ML PIGGYBACK 200 MG IV (09:52)
[2022-11-19] MEDS: lidocaine-epi 2% 20 mL INJ 40 ML INJECTION (11:14)
--- NOTE | 2022-11-19 11:25 | PM.OP ---
Operative Report Date of procedure: November 19, 2022 Pre-op diagnosis: Subcutaneous masses of bilateral arms and abdomen Post-op diagnosis: same Procedure done: Excision of subcutaneous masses of bilateral arms and abdomen Implants: None Specimens removed/disposition: Subcutaneous masses of bilateral arms and abdomen consistent with lipomas Surgeon: Dr. Nilson Jha DO Anesthesia: General Estimated blood loss (mL): 20 Complications: None apparent Brief History: This very pleasant 32-year-old female who presented my office with multiple painful subcutaneous masses of her bilateral arms and abdomen. She desired excision. The risk and benefits were explained and documented. Procedure: Patient was wheeled in operative room placed on the OR table in the supine position the abdomen and bilateral arms were inspected prepped and draped in usual sterile fashion. Timeout was performed. All present were in agreement. General endotracheal intubation was achieved by the department of anesthesia. All areas were incised and the subcutaneous masses removed in a similar fashion. 2% lidocaine with epinephrine was used to anesthetize the the skin over 3 subcutaneous masses of the left arm, 2 subcutaneous masses of the right arm and 8 subcutaneous masses of the abdomen. Transverse incisions were made with a 15 blade scalpel and lobulated subcutaneous masses were expelled from each incision. The subcutaneous masses were consistent with lipomas. Incisions and subcutaneous masses measured between 1 cm and 3 cm in length and diameter. A total of 13 subcutaneous masses were excised measuring between 1 and 3 cm in greatest diameter. The skin was closed with 4-0 Monocryl in a subcutaneous interrupted fashion. Dermabond was applied. Patient tolerated procedure well.
[2022-11-19] MEDS: HYDROcodone-acetaminophen 10-325 mg Tablet 1 TAB PO (12:23)
--- NOTE | 2022-11-19 12:52 | SUR.PHASEII ---
Pt up, getting dressed, tolerating activity well.
--- NOTE | 2022-11-19 15:30 | ANE.PACU2 ---
Inpatient post-anesthesia follow up: Airway intact: Yes Vital signs: Temperature 97.0 F Pulse Rate 77 Respiratory Rate 18 Blood Pressure 130/77 Pulse Oximetry 97 Oxygen Delivery Me thod Room Air Oxygen Flow Rate Fraction of Inspir ed Oxygen Hydration adequate: Yes Nausea and vomiting: No Pain level: 2 Mental status: Baseline
== END 2022-11-19 13:00 | disposition home or self-care (01) ==
PROVIDERS: PCP Family Medicine; Visit Provider Surgery
PROC: (CPT 11401; principal; 2022-11-19 11:00)
DX: D17.22 Benign lipomatous neoplasm of skin and subcutaneous tissue of left arm (principal); D17.21 Benign lipomatous neoplasm of skin and subcutaneous tissue of right arm; D17.1 Benign lipomatous neoplasm of skin and subcutaneous tissue of trunk; F17.200 Nicotine dependence, unspecified, uncomplicated; J44.9 Chronic obstructive pulmonary disease, unspecified; I10 Essential (primary) hypertension; K21.9 Gastro-esophageal reflux disease without esophagitis; F41.9 Anxiety disorder, unspecified; F32.A Depression, unspecified; J45.20 Mild intermittent asthma, uncomplicated
CPT/HCPCS: 11401; 88307; J1100; J2405; J2704; J3010; J3370; J7030

== ENCOUNTER → 2022-12-04 09:35 | Outpatient (BNVA) | payer MEDICAID, SELFPAY ==
[2020-12-24 13:35] VITALS: BP 124/76; BMI 55.7
== END ==
PROVIDERS: PCP Family Medicine; Visit Provider Emergency Medicine
DX: M16.0 Bilateral primary osteoarthritis of hip (principal)
CPT/HCPCS: 73502

== ENCOUNTER 2022-12-07 20:17 | Emergency (ER) | payer MEDICAID, SELFPAY ==
[2020-12-24 13:35] VITALS: BP 124/76; BMI 55.7
[2022-12-07 20:24] VITALS: BP 128/75; PULSE 104; RESP 14; TEMP 36.5; O2SAT 95; BMI 53.0
[2022-12-07 20:30] VITALS: BP 146/89; PULSE 97; RESP 20; O2SAT 97
--- NOTE | 2022-12-07 20:56 | XRR_ITS ---
PROCEDURE INFORMATION: Exam: XR Right Hip Exam date and time: 12/07/2022 9:01 PM Age: 32 years old Clinical indication: Injury or trauma; Fall; Blunt trauma (contusions or hematomas); Right; Hip; Additional info: Fall, pain TECHNIQUE: Imaging protocol: Radiologic exam of the right hip. Views: 1 view hip with pelvis when performed. COMPARISON: CR XR hip RT 2-3V wo/w pel* [id number] 12/04/2022 9:44 AM FINDINGS: Bones/joints: Unremarkable. No acute fracture. Soft tissues: Unremarkable. XR/XR hip RT 2-3V wo/w pel* [id number] IMPRESSION: No acute findings.
--- NOTE | 2022-12-07 21:16 | ED_ITS ---
HPI - Extremity Problem General: Chief complaint: Extremity Injury, Lower Stated complaint: Hip pain Time Seen by Provider: 12/07/22 20:45 History of Present Illness: 32yo female presents with family for right hip pain following a fall that occurred 2 days ago. Patient reports she stumbled on concrete blocks as she walking in their yard. Patient states that she did fall onto her right hip. She reports that she heard a pop in her hip and has had increased pain with attempts to move the right leg. Patient reports she did see her doctor 3 days ago for hip pain and had negative x-rays. States that her pain is increased since the fall. Patient also reports that she popped her sutures on her abdomen following a lipoma surgery that took place on 11/19. States that she did speak to her surgeon who advised her to come to the emergency department if her pain becomes significant. Patient reports that her pain to her hip is much worse than her pain to her abdomen. States that she has been taking Tylenol with no improvement in her symptoms. She denies hitting her head, loss consciousness, fever, chills, any other concerns at this time. Associated symptoms: Deny fever(s) Review of Systems Const: Denies: fever(s), chills or body aches GI: Denies: abdominal pain Musc: Reports: extremity pain (right hip) Skin/Breast: Reports: other (abdominal surgical incisions) [facility] ED PFSH: Medical History Abdominal pain determined by examination Asthma, mild intermittent, well-controlled Chronic constipation Constipation GERD (gastroesophageal reflux disease) Insomnia Insomnia Insomnia Intellectual delay Lipomatosis Lumbar pain Major depressive disorder, recurrent, moderate MDD (major depressive disorder) Obesity Panic Panic disorder Psychiatric care PTSD (post-traumatic stress disorder) Surgical History History of dilation and curettage History of hysterectomy History of laparoscopic cholecystectomy History of oral surgery (~2014) History of Shanae-en-Y gastric bypass (~10/2015) History of sleeve gastrectomy History of tonsillectomy and adenoidectomy Family History Mother Hypertension Diabetes Thyroid disease Father Hypertension Father Heart disease Family/Other Heart disease Denies family history of Anesthesia complication Bleeding disorder Social History Smoking and tobacco status: current every day smoker cigarettes Packs smoked per day: 0.5 Years cigarettes smoked: 10 Quit status (tobacco): has tried quititng Second hand smoke exposure: Yes Alcohol intake: never Desire information about alcohol rehabilitation?: No Substance/Drug Use: never Desire information about substance/drug rehabilitation?: No Adopted: No Caregiver/support person: Yes Lives independently: No Household members: family Housing: House Marital status: Marital status details: Since April 2020 Number of children: 1 Number of grandchildren: 0 Highest education level completed: 10th Grade service: No Current occupational status: unemployed Current occupational exposures/hazards: No Pets and animals: Yes Pets & animals: dog(s) Sexually active: Yes Do you think of yourself as: Straight/Heterosexual Current gender identity: Female Katie/Uatsdin: Rastafarian Special katie needs: No Agree to transfusion: Yes Financial difficulty paying for basics: Somewhat Hard Female Reproductive History: Para: 1 Spontaneous abortions: Yes Physical Exam Const: COMMON NORMALS: no acute distress, patient oriented x3 and alert NUTRITIONAL APPEARANCE: obese (BMI 53.0) ORIENTATION/CONSCIOUSNESS: Yes awake HENMT: COMMON NORMALS: normocephalic HEAD & SCALP: normocephalic Neck/C-Spine: COMMON NORMALS: full ROM Chest: CHEST: Yes Symmetrical chest wall rise Resp: COMMON NORMALS: normal respiratory effort Extremity: RIGHT LOWER EXTREMITY: Yes hip joint Right hip: Yes palpation and Yes ROM (pain with any movement) Neuro: COMMON NORMALS: patient oriented x3 SENSORIUM/ORIENTATION: Yes alert Psych: COMMON NORMALS: cooperative Skin: SKIN IMAGES (FEMALE): 1. Surgical wound dehiscence, wounds not approximated. No drainage noted. Tissue granulation noted to the base of the wound 2. Surgical wound dehiscence, wounds not approximated. No drainage noted. Tissue granulation noted to the base of the wound 3. Surgical wound dehiscence, wounds not approximated. No drainage noted. Granulated tissue noted to the base of the wound WOUNDS: Yes surgical site (wound edges not approximated. No drainage noted.) Course Vital Signs: Vital signs: Vital Signs Temperature 97.7 F 12/07/22 20:24 Pulse Rate 80 12/07/22 22:18 Respiratory Rate 18 12/07/22 22:18 Blood Pressure 145/88 12/07/22 22:18 Pulse Oximetry 95 12/07/22 22:18 Oxygen Delivery Me thod Room Air 12/07/22 22:06 MDM - Extremity (Nontraumatic) Medical Decision Making 32yo female here with family for right hip pain following a stumble and fall that occurred 2 days ago where she landed on her left hip. Patient reports she was walking in her yard when she fell due to shifting concrete steps. Patient reports that she felt a pop at the time of the injury and has had increased pain with weightbearing. Patient does report that she saw her doctor 3 days ago where she had a negative x-ray. She also reports that she tore her sutures in her abdominal surgical wounds, but she has already spoken with her surgeon. Patient denies hitting her head, loss consciousness, fever, chills, body aches. Patient is nontoxic in appearance. Vital signs are stable. Differentials include: fracture, contusion, muscle strain No acute abnormalities were noted on the x-ray. Discussed findings with patient. Patient did receive IM ketorolac and orphenadrine while in the emerg ency department. Discussed with patient we would hold have her hold her methocarbamol and prescribe cyclobenzaprine instead. Activity modification discussed. Recommend she follow-up with her surgeon, call tomorrow with an update of her abdominal surgical wounds and to discuss a recheck. Advised that she follow-up with primary care for her hip pain. Recommended returning to the emergency department if any rapid worsening symptoms, further injury, and as needed. Lab Data I reviewed the patient's lab results. Radiology Impressions Hip/Pelvis X-Ray 12/07/22 20:56 IMPRESSION: No acute findings. Discharge Plan Discharge Patient Disposition: Home Clinical Impression: Acute pain of right hip, Fall from slip, trip, or stumble, Surgical wound dehiscence Condition: Stable Prescriptions: New cyclobenzaprine 10 mg tablet 10 mg PO TID PRN (Reason: muscle spasm) Qty: 30 0RF No Action epinephrine 0.3 mg/0.3 mL auto-injector 0.3 mg IM Q15M PRN (Reason: Allergic Symptoms) Rx Instructions: for 2 doses albuterol sulfate [ProAir HFA] 90 mcg/actuation HFA aerosol inhaler 2 puff INHALATION Q6H PRN (Reason: shortness of breath or wheezing) 30 Days Qty: 18 5RF metoprolol tartrate 100 mg tablet 100 mg PO BID pramipexole 0.25 mg tablet 0.25 mg PO TID 30 Days Qty: 90 5RF omeprazole 40 mg capsule,delayed release(DR/EC) 40 mg PO DAILY 30 Days Qty: 30 5RF Linzess 72 mcg capsule 72 mcg PO DAILY 30 Days Qty: 30 5RF Qulipta 30 mg tablet 30 mg PO BID doxycycline hyclate 100 mg tablet 100 mg PO BID 10 Days Qty: 20 0RF hydrocodone-acetaminophen 5-325 mg tablet 1 tab PO Q6H PRN (Reason: pain) 5 Days Qty: 20 0RF methocarbamol 750 mg tablet 750 mg PO TID 5 Days Qty: 15 0RF aripiprazole [Abilify] 2 mg tablet 2 mg PO DAILY Qty: 30 0RF doxepin 25 mg capsule 25 mg PO BID Qty: 60 0RF Rx Instructions: Take together with Doxepin 75mg at bedtime doxepin 75 mg capsule 75 mg PO .qhs 30 Days Qty: 30 0RF escitalopram oxalate [Lexapro] 20 mg tablet 20 mg PO DAILY Qty: 30 0RF eszopiclone [Lunesta] 3 mg tablet 3 mg PO .HS Qty: 30 0RF lorazepam 1 mg tablet 1 mg PO DAILY PRN (Reason: anxiety) Qty: 10 0RF Discharge Orders: Discharge ED (Routine); Ordered 12/07/22 Ordered By: Erwin Hua Referrals: Julia Casillas MD [Primary Care Provider] - Discharge Diet: Usual diet Discharge Activity: Increase activity as tolerated Patient Instructions: Acute Wound Care (ED), Hip Contusion (ED) Activity Restrictions/Additional Instructions: Do not take your previously prescribed methocarbamol while you are taking the prescribed cyclobenzaprine. Do not drive or operate heavy machinery while taking cyclobenzaprine. Call your surgeon to discuss a recheck of your abdominal surgical wounds. Coding Level of Care Code ED Business Systems Advisor for Peter Dowell
[2022-12-07 21:17] VITALS: BP 145/88; PULSE 89; RESP 18; O2SAT 99
[2022-12-07] MEDS: orphenadrine 30 mg/mL Inj 2 mL 60 MG IM (21:24)
[2022-12-07] MEDS: ketorolac 30 mg/mL INJ IM (21:24)
[2022-12-07 21:39] VITALS: BP 145/88; PULSE 84; RESP 18; O2SAT 98
[2022-12-07 22:06] VITALS: BP 145/88; PULSE 86; RESP 16; O2SAT 98
[2022-12-07 22:18] VITALS: BP 145/88; PULSE 80; RESP 18; O2SAT 95
== END 2022-12-07 22:20 | disposition home or self-care (01) ==
PROVIDERS: Emergency Provider Family Medicine; PCP Family Medicine
DX: T81.31XA Disruption of external operation (surgical) wound, not elsewhere classified, initial encounter (principal); M25.551 Pain in right hip; J45.20 Mild intermittent asthma, uncomplicated; E66.9 Obesity, unspecified; Z68.43 Body mass index [BMI] 50.0-59.9, adult; F17.210 Nicotine dependence, cigarettes, uncomplicated; Z79.899 Other long term (current) drug therapy; Y83.8 Other surgical procedures as the cause of abnormal reaction of the patient, or of later complication, without mention of misadventure at the time of the procedure
CPT/HCPCS: 73502; 96372; 99284; J1885; J2360

== ENCOUNTER → 2022-12-08 11:43 | Outpatient (BNVA) | payer MEDICAID, SELFPAY ==
[2020-12-24 13:35] VITALS: BP 124/76; BMI 55.7
== END ==
PROVIDERS: PCP Family Medicine; Visit Provider Surgery
DX: D17.30 Benign lipomatous neoplasm of skin and subcutaneous tissue of unspecified sites (principal)
CPT/HCPCS: 99213

== ENCOUNTER → 2023-01-13 15:15 | Outpatient (BNVA) | payer MEDICAID, SELFPAY ==
[2020-12-24 13:35] VITALS: BP 124/76; BMI 55.7
== END ==
PROVIDERS: PCP Family Medicine; Visit Provider Nurse Practitioner Family
DX: M16.12 Unilateral primary osteoarthritis, left hip (principal); M25.552 Pain in left hip
CPT/HCPCS: 73502

== ENCOUNTER → 2023-01-14 13:51 | Outpatient (BNVA) | payer MEDICAID, SELFPAY ==
[2020-12-24 13:35] VITALS: BP 124/76; BMI 55.7
== END ==
PROVIDERS: PCP Family Medicine; Referring Provider Emergency Medicine; Visit Provider Nurse Practitioner Family
DX: M70.62 Trochanteric bursitis, left hip; M54.10 Radiculopathy, site unspecified
CPT/HCPCS: 73522; 99214

== ENCOUNTER → 2023-01-19 10:30 | Outpatient (BNVA) | payer MEDICAID, SELFPAY ==
[2020-12-24 13:35] VITALS: BP 124/76; BMI 55.7
== END ==
PROVIDERS: PCP Family Medicine; Visit Provider Family Medicine
DX: J45.20 Mild intermittent asthma, uncomplicated (principal); F32.9 Major depressive disorder, single episode, unspecified; G47.00 Insomnia, unspecified; R00.2 Palpitations; G25.81 Restless legs syndrome; Z13.1 Encounter for screening for diabetes mellitus; Z13.220 Encounter for screening for lipoid disorders; Z13.6 Encounter for screening for cardiovascular disorders; B07.0 Plantar wart; K58.1 Irritable bowel syndrome with constipation; F33.1 Major depressive disorder, recurrent, moderate; F51.05 Insomnia due to other mental disorder; F99 Mental disorder, not otherwise specified
CPT/HCPCS: 80053; 80061; 85025

== ENCOUNTER → 2023-10-11 17:42 | Outpatient (BNVA) | payer MEDICAID, SELFPAY ==
[2020-12-24 13:35] VITALS: BP 124/76; BMI 55.7
== END ==
PROVIDERS: PCP Family Medicine; Visit Provider Nurse Practitioner Family
DX: R30.0 Dysuria
CPT/HCPCS: 81000

== ENCOUNTER → 2023-12-13 08:53 | Outpatient (BNVA) | payer MEDICAID, SELFPAY ==
[2020-12-24 13:35] VITALS: BP 124/76; BMI 55.7
== END ==
PROVIDERS: PCP Family Medicine; Visit Provider Family Medicine
DX: Z13.1 Encounter for screening for diabetes mellitus; Z13.220 Encounter for screening for lipoid disorders; Z13.6 Encounter for screening for cardiovascular disorders; M25.50 Pain in unspecified joint
CPT/HCPCS: 80053; 80061; 85651; 86038; 86140

== ENCOUNTER → 2023-12-30 09:12 | Outpatient (BNVA) | payer MEDICAID, SELFPAY ==
[2020-12-24 13:35] VITALS: BP 124/76; BMI 55.7
== END ==
PROVIDERS: PCP Family Medicine; Visit Provider Nurse Practitioner
DX: M54.9 Dorsalgia, unspecified (principal)
CPT/HCPCS: 81000; 87086

== ENCOUNTER → 2024-02-06 15:50 | Outpatient (BNVA) | payer MEDICAID, SELFPAY ==
[2020-12-24 13:35] VITALS: BP 124/76; BMI 55.7
== END ==
PROVIDERS: PCP Family Medicine; Visit Provider Nurse Practitioner Family
DX: N39.0 Urinary tract infection, site not specified (principal)
CPT/HCPCS: 81000

== ENCOUNTER → 2024-02-27 10:38 | Outpatient (BNVA) | payer OTHER, SELFPAY ==
[2020-12-24 13:35] VITALS: BP 124/76; BMI 55.7
== END ==
PROVIDERS: PCP Family Medicine; Visit Provider Emergency Medicine
DX: R00.2 Palpitations (principal)
CPT/HCPCS: 93005

== ENCOUNTER → 2024-08-22 08:41 | Outpatient (BNVA) | payer MEDICAID, SELFPAY ==
[2024-03-24 13:28] VITALS: BP 124/84; BMI 54.6
== END ==
PROVIDERS: PCP Family Medicine; Visit Provider Surgery
DX: D17.30 Benign lipomatous neoplasm of skin and subcutaneous tissue of unspecified sites (principal)
CPT/HCPCS: 99203

== ENCOUNTER → 2024-12-12 10:44 | Outpatient (BNVA) | payer OTHER, SELFPAY ==
[2024-03-24 13:28] VITALS: BP 124/84; BMI 54.6
== END ==
PROVIDERS: PCP Family Medicine; Visit Provider Psychiatry & Neurology Psychiatry
DX: Z79.899 Other long term (current) drug therapy (principal)
CPT/HCPCS: 80053; 80061; 83036; 84443; 85025